=== PATIENT | male | born 1935 | race Caucasian/White ===

== ENCOUNTER → 2016-08-14 | Outpatient (CLI) | payer MEDICARE, BC, OTHER | LOC: MW.CHPOD 08:00 | PROVIDERS: ATTEND Podiatrist Foot & Ankle Surgery | DX: R26.9 Unspecified abnormalities of gait and mobility (principal); M21.40 Flat foot [pes planus] (acquired), unspecified foot; M21.969 Unspecified acquired deformity of unspecified lower leg; I99.9 Unspecified disorder of circulatory system; B35.1 Tinea unguium; I73.9 Peripheral vascular disease, unspecified; M79.673 Pain in unspecified foot; L60.3 Nail dystrophy | CPT/HCPCS: 11721; 99214 ==

== ENCOUNTER → 2016-08-21 | Outpatient (CLI) | payer MEDICARE, BC, OTHER | LOC: MW.CHFP 08:00 | PROVIDERS: ATTEND Student in an Organized Health Care Education/Training Program | DX: Z51.81 Encounter for therapeutic drug level monitoring (principal); Z79.01 Long term (current) use of anticoagulants; I48.91 Unspecified atrial fibrillation | CPT/HCPCS: 85610; 99211 ==

== ENCOUNTER → 2016-09-04 | Outpatient (CLI) | payer MEDICARE, BC, OTHER | LOC: MW.CHFP 08:00 | PROVIDERS: ATTEND Student in an Organized Health Care Education/Training Program | DX: Z51.81 Encounter for therapeutic drug level monitoring (principal); Z79.01 Long term (current) use of anticoagulants; I48.91 Unspecified atrial fibrillation | CPT/HCPCS: 85610; 99211 ==

== ENCOUNTER → 2016-09-17 | Outpatient (CLI) | payer MEDICARE, BC, OTHER | LOC: MW.CHORTHO 08:00 | PROVIDERS: ATTEND Orthopaedic Surgery | DX: M54.40 Lumbago with sciatica, unspecified side (principal); M54.30 Sciatica, unspecified side; M16.12 Unilateral primary osteoarthritis, left hip | CPT/HCPCS: G0463 ==

== ENCOUNTER → 2016-09-18 | Outpatient (CLI) | payer MEDICARE, BC ==
--- NOTE | 2016-09-23 15:37 | MR ---
EXAM DATE: 09/18/16 PATIENT'S AGE: 81 Patient: ARIEL ZENG Facility: [facility] Site Site : [id number] Study: MRI-Spine Lumbar [id number]/25/2017 11:04:41 AM Ordering Physician: RENARD WALLS MD Final Report: Indication: Left hip pain. Comparison: None. Technique: Sagittal T1, T2, and STIR sequences. Axial T1 and T2 weighted sequences. Findings: Normal vertebral body alignment. No fractures. No vertebral body loss of height. No spondylolisthesis. No ligamentous injury. Normal marrow signal. Normal conus terminates at L1. Lumbar spondylosis with multilevel disk degeneration facet arthropathy. T12-L1: No spinal canal or neural foraminal narrowing. L1-2: No spinal canal or neural foraminal narrowing. L2-3: Disc degeneration with diffuse disc bulge. No narrowing of spinal canal. No neural foraminal narrowing. Mild bilateral facet arthropathy. L3-4: Disc degeneration with diffuse disc bulge. Superimposed shallow right foraminal and extra foraminal disc protrusion measuring approximately 3 mm in short axis. No narrowing of spinal canal. No neural foraminal narrowing. Mild bilateral facet arthropathy. L4-5: Disc degeneration with diffuse disc bulge and endplate osteophytic ridging asymmetric to the left. Superimposed left subarticular disk protrusion measuring approximately 4 mm in short axis. Mild narrowing of spinal canal. Left subarticular recess narrowing with impingement of the traversing left L5 nerve root. Mild right and moderate severe left neural foraminal narrowing. Impingement of the exiting left L4 nerve root. Mild bilateral facet arthropathy. L5-S1: Mild disc degeneration diffuse disc bulge. No narrowing of spinal canal. Mild narrowing of the bilateral neural foramina. Mild bilateral facet arthropathy. Degenerative changes of the visualized SI joints. Normal paraspinal soft tissues. Impression: 1. Normal alignment. No fractures. No spondylolisthesis. 2. Lumbar spondylosis 3. At L3-4, disc degeneration with diffuse disc bulge. Right foraminal and extra foraminal disc protrusion. Otherwise, no spinal canal or neural foraminal narrowing 4. At L4-5, disc degeneration with diffuse disc bulge. Left subarticular disk protrusion. Mild narrowing of the spinal canal. Impingement of the traversing left L5 nerve root. Mild right and moderate to severe left neural foraminal narrowing. Impingement of the exiting left L4 nerve root 5. At L5-S1, mild narrowing of bilateral foramina Dictated by Gamal Dai MD @ Sep 23 2016 10:13AM Signed by: Gamal Dai MD @09/23/2016 10:17:01 AM (Electronic Signature) Report Signed by Proxy. SYED
== END ==
LOC: MW.MRI 08:21
PROVIDERS: ATTEND Orthopaedic Surgery
DX: M25.552 Pain in left hip (principal)
CPT/HCPCS: 72148; 72148-26

== ENCOUNTER → 2016-10-02 | Outpatient (CLI) | payer MEDICARE, BC | LOC: MW.CHPM 09:59 | PROVIDERS: ATTEND Anesthesiology | DX: I48.91 Unspecified atrial fibrillation (principal); D64.9 Anemia, unspecified; K57.90 Diverticulosis of intestine, part unspecified, without perforation or abscess without bleeding; Z86.79 Personal history of other diseases of the circulatory system | CPT/HCPCS: 36415; 80053; 85025 ==

== ENCOUNTER → 2016-10-04 | Outpatient (CLI) | payer MEDICARE, BC | LOC: MW.CHFP 08:00 | PROVIDERS: ATTEND Student in an Organized Health Care Education/Training Program | DX: Z51.81 Encounter for therapeutic drug level monitoring (principal); Z79.01 Long term (current) use of anticoagulants; I48.91 Unspecified atrial fibrillation | CPT/HCPCS: 85610; 99211 ==

== ENCOUNTER → 2016-10-09 | Outpatient (CLI) | payer MEDICARE, BC, OTHER ==
--- NOTE | 2016-10-11 13:02 | ECHO ---
EXAM DATE: 10/09/16 PATIENT'S AGE: 81 The echocardiogram report can be seen in this patient's EMR (Electronic Medical Record) in the Reports section. SYED
== END ==
LOC: MW.US 12:47
PROVIDERS: ATTEND Internal Medicine
DX: I48.91 Unspecified atrial fibrillation (principal)
CPT/HCPCS: 93306

== ENCOUNTER → 2016-10-16 | Outpatient (CLI) | payer MEDICARE, BC | LOC: MW.CHPOD 08:00 | PROVIDERS: ATTEND Podiatrist Foot & Ankle Surgery | DX: R26.9 Unspecified abnormalities of gait and mobility (principal); M21.969 Unspecified acquired deformity of unspecified lower leg; M21.40 Flat foot [pes planus] (acquired), unspecified foot; Z79.01 Long term (current) use of anticoagulants; B35.1 Tinea unguium; M79.673 Pain in unspecified foot; I99.9 Unspecified disorder of circulatory system | CPT/HCPCS: 11721; G0463 ==

== ENCOUNTER 2018-10-12 16:25 | Emergency (ER) | payer MEDICARE, BC ==
--- NOTE | 2018-10-12 16:50 | EDM.PDOC ---
ED HPI GENERAL MEDICAL PROBLEM - General Chief Complaint: General Stated Complaint: INJURED ARM Time Seen by Provider: 10/12/18 16:33 - History of Present Illness INITIAL COMMENTS - FREE TEXT/NARRATIVE: HISTORY AND PHYSICAL: History of present illness: Patient is an 83-year-old white male who is on Coumadin who presents status post fall from last Saturday which he has had injured his right ribs right wrist and right hip he has been ambulatory since she's had no nausea vomiting or other complaints he denies chest pain shortness of breath. Review of systems: As per history of present illness and below otherwise all systems reviewed and negative. Past medical history: As per history of present illness and as reviewed below otherwise noncontributory. Surgical history: As per history of present illness and as reviewed below otherwise noncontributory. Social history: No reported history of drug or alcohol abuse. Family history: As per history of present illness and as reviewed below otherwise noncontributory. Physical exam: HEENT: Small per his noted right forehead normocephalic, pupils reactive, negative for conjunctival pallor or scleral icterus, mucous membranes moist, throat clear, neck supple, nontender, trachea midline. Lungs: Clear to auscultation, breath sounds equal bilaterally, chest right rib tenderness no crepitation or point tenderness Heart: S1S2, regular, negative for clicks, rubs, or JVD. Abdomen: Soft, nondistended, nontender. Negative for masses or hepatosplenomegaly. Negative for costovertebral tenderness. Pelvis: Stable nontender. Genitourinary: Deferred. Rectal: Deferred. Extremities: Right wrist has some mild tenderness over dorsal aspect no gross deformity Neuro: Awake, alert, oriented. Cranial nerves II through XII unremarkable. Cerebellum unremarkable. Motor and sensory unremarkable throughout. Exam nonfocal. Diagnostics: CBC CMP PT/INR CT brain x-ray right wrist x-ray right ribs with chest x-ray right hip with pelvis Therapeutics: None Impression: #1 observation today status post fall #2 head injury #3 right rib injury #4 right wrist injury #5 right hip injury Definitive disposition and diagnosis as appropriate pending reevaluation and review of above. right ribs Pain Score (Numeric/FACES): 7 right wrist Pain Score (Numeric/FACES): 10 - Related Data Allergies Allergy/AdvReac Type Severity Reaction Status Date / Time morphine Allergy Vomiting Verified 10/12/18 16:36 Penicillins Allergy Hives Verified 10/12/18 16:36 Home Meds: Home Meds Allopurinol [Zyloprim] 100 mg PO DAILY 09/03/14 [History] Citalopram [Citalopram HBr] 40 mg PO DAILY 09/03/14 [History] Diltiazem HCl [Diltiazem 24Hr ER] 240 mg PO DAILY 09/03/14 [History] Latanoprost [Xalatan 0.005% Ophth Soln] 1 drop EYEBOTH BEDTIME 09/03/14 [History ] Tamsulosin [Flomax] 0.4 mg PO BEDTIME 09/03/14 [History] Warfarin [Coumadin] 5 mg PO DAILY 09/03/14 [History] Acetaminophen [Tylenol] 325 tab PO Q4HR PRN 01/19/15 [History] Simvastatin [Zocor] 40 mg PO BEDTIME 04/02/16 [History] Fish Oil/[place]-3 Fatty Acids [Fish Oil 1,000 MG] 1 each PO DAILY 05/02/18 [ History] Levothyroxine [Synthroid] 50 mcg DAILY 05/02/18 [History] Sennosides/Docusate Sodium [Docusate Sodium-Senna Tablet] 1 each PO ASDIRECTED 05/02/18 [History] Trospium [Sanctura] 1 tab DAILY 05/02/18 [History] hydroCHLOROthiazide [Hydrochlorothiazide] 50 mg PO DAILY 05/02/18 [History] Past Medical History HEENT History: Reports: Hard of Hearing Cardiovascular History: Reports: Arrhythmia, Hypertension Respiratory History: Reports: Sleep Apnea Other Respiratory History: Sleep apnea with machine "has not used in over 1 month" Gastrointestinal History: Reports: None Genitourinary History: Reports: Renal Calculus Musculoskeletal History: Reports: Gout Neurological History: Reports: CVA Other Neuro History: hx: Stroke age 50 yrs, residual noted by , is his responses are not always accurate 'he will say no but mean yes', fine motor issues 'cannot button, will come to me to do' Psychiatric History: Reports: Depression Endocrine/Metabolic History: Reports: None Hematologic History: Reports: Anemia Immunologic History: Reports: None Oncologic (Cancer) History: Reports: Prostate Other Oncologic History: Radiation therapy 40 some treatments estimates 3 yrs or > Dermatologic History: Reports: None - Infectious Disease History Infectious Disease History: Reports: Chicken Pox - Past Surgical History Head Surgeries/Procedures: Reports: None HEENT Surgical History: Reports: None Cardiovascular Surgical History: Reports: None Respiratory Surgical History: Reports: None GI Surgical History: Reports: None Male Surgical History: Reports: Other (See Below) Endocrine Surgical History: Reports: None Neurological Surgical History: Reports: Other (See Below) Musculoskeletal Surgical History: Reports: Shoulder Surgery Oncologic Surgical History: Reports: None Dermatological Surgical History: Reports: None Social & Family History - Family History Family Medical History: Noncontributory GI: Reports: Other (See Below) Other GI Family History: His mother and sister of liver disease but cannot recall what their specific condition is. - Tobacco Use Smoking Status *Q: Never Smoker Second Hand Smoke Exposure: No - Caffeine Use Caffeine Use: Reports: Coffee - Recreational Drug Use Recreational Drug Use: No ED ROS GENERAL - Review of Systems Review Of Systems: ROS reveals no pertinent complaints other than HPI. ED EXAM, GENERAL - Physical Exam Exam: See Below (Dictation) Course - Vital Signs Last Recorded V/S: Last Vital Signs Temp 36.5 C 10/12/18 16:31 Pulse 74 10/12/18 16:31 Resp 18 10/12/18 16:31 BP 131/64 10/12/18 16:31 Pulse Ox 97 10/12/18 16:31 - Orders/Labs/Meds Labs: Laboratory Tests 10/12/18 10/12/18 10/12/18 Range/Units 17:00 17:00 17:00 WBC 5.25 (4.0-11.0) K/uL RBC 3.47 L (4.50-5.90) M/uL Hgb 10.5 L (13.0-17.0) g/dL Hct 33.0 L (38.0-50.0) % MCV 95.1 (80.0-98.0) fL MCH 30.3 (27.0-32.0) pg MCHC 31.8 (31.0-37.0) g/dL RDW Std Deviation 75.0 H (28.0-62.0) fl RDW Coeff of Akbar 22 H (11.0-15.0) % Plt Count 209 (150-400) K/uL MPV 9.20 (7.40-12.00) fL Neut % (Auto) 63.8 (48.0-80.0) % Lymph % (Auto) 22.1 (16.0-40.0) % [place] % (Auto) 9.7 (0.0-15.0) % Eos % (Auto) 4.0 (0.0-7.0) % Baso % (Auto) 0.4 (0.0-1.5) % Neut # (Auto) 3.4 (1.4-5.7) K/uL Lymph # (Auto) 1.2 (0.6-2.4) K/uL [place] # (Auto) 0.5 (0.0-0.8) K/uL Eos # (Auto) 0.2 (0.0-0.7) K/uL Baso # (Auto) 0.0 (0.0-0.1) K/uL Nucleated RBC % 0.0 /100WBC Nucleated RBCs # 0 K/uL INR 2.16 Sodium 142 (136-148) mmol/L Potassium 4.1 (3.5-5.1) mmol/L Chloride 107 (98-107) mmol/L Carbon Dioxide 26.1 (21.0-32.0) mmol/L BUN 41 H (7.0-18.0) mg/dL Creatinine 2.7 H (0.8-1.3) mg/dL Est Cr Clr Drug Dosing 20.00 mL/min Estimated GFR (MDRD) 22.6 ml/min Glucose 99 (74-106) mg/dL Calcium 9.0 (8.5-10.1) mg/dL Total Bilirubin 0.3 (0.2-1.0) mg/dL AST 9 L (15-37) IU/L ALT 17 (14-63) IU/L Alkaline Phosphatase 79 (46-116) U/L Total Protein 6.7 (6.4-8.2) g/dL Albumin 3.0 L (3.4-5.0) g/dL Globulin 3.7 (2.6-4.0) g/dL Albumin/Globulin Ratio 0.8 L (0.9-1.6) Departure - Departure Time of Disposition: 17:50 Disposition: Home, Self-Care 01 Condition: Good Clinical Impression: Fall, Head injury, Hip injury, Rib injury, Ulna fracture - Discharge Information Referrals: PCP,Unknown [Primary Care Provider] - Forms: ED Department Discharge Additional Instructions: The following information is given to patients seen in the emergency department who are being discharged to home. This information is to outline your options for follow-up care. We provide all patients seen in our emergency department with a follow-up referral. The need for follow-up, as well as the timing and circumstances, are variable depending upon the specifics of your emergency department visit. If you don't have a primary care physician on staff, we will provide you with a referral. We always advise you to contact your personal physician following an emergency department visit to inform them of the circumstance of the visit and for follow-up with them and/or the need for any referrals to a consulting specialist. The emergency department will also refer you to a specialist when appropriate. This referral assures that you have the opportunity for followup care with a specialist. All of these measure are taken in an effort to provide you with optimal care, which includes your followup. Under all circumstances we always encourage you to contact your private physician who remains a resource for coordinating your care. When calling for followup care, please make the office aware that this follow-up is from your recent emergency room visit. If for any reason you are refused follow-up, please contact the [facility] emergency department at and asked to speak to the emergency department charge nurse. [facility] [address], [address] [place] [address] [place] as directed follow-up primary medical doctor and orthopedic surgery as discussed return as needed as discussed
--- NOTE | 2018-10-12 17:33 | CR ---
INDICATION: Trauma. Patient fell 2 days prior. COMPARISON: none TECHNIQUE: Two-view right wrist FINDINGS: The bones are anatomically aligned. There is an oblique hairline fracture extending through the distal ulnar metaphysis. The radius appears intact. No fractures are noted within the carpal bones or metacarpals. IMPRESSION: Nondisplaced fracture noted within the distal ulnar metaphysis. Dictated by Ted Mendez MD @ Oct 12 2018 5:30PM Signed by Dr. Ted Mendez @ Oct 12 2018 5:32PM
--- NOTE | 2018-10-12 17:37 | CT ---
TECHNIQUE: Noncontrast head CT. INDICATION: Fell and hit head. On warfarin. COMPARISON: 03/31/[address] FINDINGS: There is a large area of encephalomalacia in the left frontal lobe and a small area of encephalomalacia in the right frontal lobe. There is a small chronic left cerebellar hemispheric infarct. These findings are unchanged. There is no acute intracranial hemorrhage, mass effect, or evidence for acute infarction. There is age-related cerebral and cerebellar volume loss. IMPRESSION: 1. No acute intracranial findings. 2. Several chronic infarcts, unchanged. Dictated by Alexandru Higuera MD @ 10/12/2018 5:34:50 PM Please note that all CT scans at this facility use dose modulation, iterative reconstruction, and/or weight-based dosing when appropriate to reduce radiation dose to as low as reasonably achievable. Dictated by: Alexandru Higuera MD @ 10/12/2018 17:35:46 (Electronically Signed)
--- NOTE | 2018-10-12 17:46 | CR ---
INDICATION: Patient fell 2 days ago TECHNIQUE: AP pelvis and 2 view right hip. COMPARISON: none FINDINGS: The hips are anatomically aligned. There is no evidence of a fracture or intrinsic bone lesion within either hip. The sacroiliac joints, iliac wings and pubic rami appear normal. The soft tissues appear normal. IMPRESSION: Negative right hip and pelvis. Dictated by Ted Mendez MD @ Oct 12 2018 5:44PM Signed by Dr. Ted Mendez @ Oct 12 2018 5:45PM
--- NOTE | 2018-10-12 17:48 | CR ---
INDICATION: Patient fell 2 days ago COMPARISON: none TECHNIQUE: PA chest and right ribs. FINDINGS: The lungs are clear. There is no evidence of pulmonary contusion, pneumothorax or pleural effusion. The heart and pulmonary vessels are of normal size. Oblique detail views of the ribs demonstrate no acute fracture. There are is bony callus about old healed fractures within the anterior right 8th, 9th and 10th ribs. There is no evidence of pleural hematoma. IMPRESSION: No acute rib fracture identified. Dictated by Ted Mendez MD @ Oct 12 2018 5:45PM Signed by Dr. Ted Mendez @ Oct 12 2018 5:48PM
[2018-10-12 18:16] VITALS: BP 131/58
== END 2018-10-12 18:16 | disposition home or self-care (01) ==
LOC: MW.ED 16:25
DX: S52.601A Unspecified fracture of lower end of right ulna, initial encounter for closed fracture (principal); S09.90XA Unspecified injury of head, initial encounter; S29.9XXA Unspecified injury of thorax, initial encounter; S79.911A Unspecified injury of right hip, initial encounter; I10 Essential (primary) hypertension; F32.9 Major depressive disorder, single episode, unspecified; D64.9 Anemia, unspecified; Z86.73 Personal history of transient ischemic attack (TIA), and cerebral infarction without residual deficits; Z88.5 Allergy status to narcotic agent; Z88.0 Allergy status to penicillin; Z79.899 Other long term (current) drug therapy; Z79.01 Long term (current) use of anticoagulants; W19.XXXA Unspecified fall, initial encounter
CPT/HCPCS: 36415; 70450; 70450-26; 71100-26-RT; 71100-RT; 73100-26-RT; 73100-RT; 73502-26-RT; 73502-RT; 80053; 85025; 85610; 99283-25

== ENCOUNTER 2018-10-18 10:11 | Emergency (ER) | payer MEDICARE, BC ==
[2018-10-18 10:21] VITALS: BP 136/95
--- NOTE | 2018-10-18 10:30 | EDM.PDOC ---
ED HPI GENERAL MEDICAL PROBLEM - General Chief Complaint: ENT Problem Stated Complaint: NOSE BLEED Time Seen by Provider: 10/18/18 10:23 Source of Information: Reports: Patient History Limitations: Reports: No Limitations - History of Present Illness INITIAL COMMENTS - FREE TEXT/NARRATIVE: HISTORY AND PHYSICAL: History of present illness: Patient is an 83-year-old male who presents to the emergency room today with complaints of epistaxis which started approximately 20 minutes prior to arrival. He denies any falls, injury or trauma. Patient does report that he takes warfarin daily. Sees a primary care provider in the clinic for routine PT/ INR level check. Patient denies any fever, chills, headache, change in vision, syncope or near syncope. Denies any chest pain, back pain, shortness of breath or cough. Denies any abdominal pain, nausea, vomiting, diarrhea, constipation or dysuria. Has not noted any blood in urine or stool. Patient has been eating and drinking appropriately. Review of systems: As per history of present illness and below otherwise all systems reviewed and negative. Past medical history: As per history of present illness and as reviewed below otherwise noncontributory. Surgical history: As per history of present illness and as reviewed below otherwise noncontributory. Social history: See social history for further information Family history: As per history of present illness and as reviewed below otherwise noncontributory. Physical exam: General: Well-developed and well-nourished 83-year-old male. Alert and oriented. Nontoxic appearing and in no acute distress. HEENT: Atraumatic, normocephalic, pupils equal and reactive bilaterally, negative for conjunctival pallor or scleral icterus, mucous membranes moist, left nostril has an anterior nosebleed, TMs normal bilaterally, throat clear, neck supple, nontender, trachea midline. No drooling or trismus noted. No meningeal signs. No hot potato voice noted. Lungs: Clear to auscultation, breath sounds equal bilaterally, chest nontender. Heart: S1S2, regular rate and rhythm without overt murmur Abdomen: Soft, nondistended, nontender. Skin: Intact, warm, dry. No lesions or rashes noted. Extremities: Atraumatic, moves all extremities per self without difficulty or deficits, negative for cords or calf pain. Neurovascular unremarkable. Neuro: Awake, alert, oriented. Cranial nerves II through XII unremarkable. Cerebellum unremarkable. Motor and sensory unremarkable throughout. Exam nonfocal. Notes: Anterior nosebleed noted to the left near. We discussed options for nasal packing. 5.5 Rhino Rocket was placed in the left naris successfully. Patient tolerated well. Mustache dressing applied. Supportive care measures were reviewed and discussed. Voices understanding and is agreeable to plan of care. Denies any further questions or concerns at this time. Diagnostics: PT/INR Therapeutics: RhinoRocket Prescription: None Impression: Epistaxis, left nares Plan: 1. Please return in 48 hours for Rhino Rocket removal. 2. Gentle blowing of your nose. 3. Please follow-up with your primary care provider as we discussed. Return to the ED as needed and as discussed. Definitive disposition and diagnosis as appropriate pending reevaluation and review of above. Onset: Today Duration: Minutes: - Related Data Allergies Allergy/AdvReac Type Severity Reaction Status Date / Time morphine Allergy Vomiting Verified 10/12/18 16:36 Penicillins Allergy Hives Verified 10/12/18 16:36 Home Meds: Home Meds Allopurinol [Zyloprim] 100 mg PO DAILY 09/03/14 [History] Citalopram [Citalopram HBr] 40 mg PO DAILY 09/03/14 [History] Diltiazem HCl [Diltiazem 24Hr ER] 240 mg PO DAILY 09/03/14 [History] Latanoprost [Xalatan 0.005% Ophth Soln] 1 drop EYEBOTH BEDTIME 09/03/14 [History ] Tamsulosin [Flomax] 0.4 mg PO BEDTIME 09/03/14 [History] Warfarin [Coumadin] 5 mg PO DAILY 09/03/14 [History] Acetaminophen [Tylenol] 325 tab PO Q4HR PRN 01/19/15 [History] Simvastatin [Zocor] 40 mg PO BEDTIME 04/02/16 [History] Fish Oil/[place]-3 Fatty Acids [Fish Oil 1,000 MG] 1 each PO DAILY 05/02/18 [ History] Levothyroxine [Synthroid] 50 mcg DAILY 05/02/18 [History] Sennosides/Docusate Sodium [Docusate Sodium-Senna Tablet] 1 each PO ASDIRECTED 05/02/18 [History] Trospium [Sanctura] 1 tab DAILY 05/02/18 [History] Past Medical History HEENT History: Reports: Hard of Hearing Cardiovascular History: Reports: Arrhythmia, Hypertension Respiratory History: Reports: Sleep Apnea Other Respiratory History: Sleep apnea with machine "has not used in over 1 month" Gastrointestinal History: Reports: None Genitourinary History: Reports: Renal Calculus Musculoskeletal History: Reports: Gout Neurological History: Reports: CVA Other Neuro History: hx: Stroke age 50 yrs, residual noted by , is his responses are not always accurate 'he will say no but mean yes', fine motor issues 'cannot button, will come to me to do' Psychiatric History: Reports: Depression Endocrine/Metabolic History: Reports: None Hematologic History: Reports: Anemia Immunologic History: Reports: None Oncologic (Cancer) History: Reports: Prostate Other Oncologic History: Radiation therapy 40 some treatments estimates 3 yrs or > Dermatologic History: Reports: None - Infectious Disease History Infectious Disease History: Reports: Chicken Pox - Past Surgical History Head Surgeries/Procedures: Reports: None HEENT Surgical History: Reports: None Cardiovascular Surgical History: Reports: None Respiratory Surgical History: Reports: None GI Surgical History: Reports: None Male Surgical History: Reports: Other (See Below) Endocrine Surgical History: Reports: None Neurological Surgical History: Reports: Other (See Below) Musculoskeletal Surgical History: Reports: Shoulder Surgery Oncologic Surgical History: Reports: None Dermatological Surgical History: Reports: None Social & Family History - Family History Family Medical History: Noncontributory GI: Reports: Other (See Below) Other GI Family History: His mother and sister of liver disease but cannot recall what their specific condition is. - Tobacco Use Smoking Status *Q: Never Smoker Second Hand Smoke Exposure: No - Caffeine Use Caffeine Use: Reports: Coffee - Recreational Drug Use Recreational Drug Use: No ED ROS ENT - Review of Systems Review Of Systems: ROS reveals no pertinent complaints other than HPI. ED EXAM, ENT - Physical Exam Exam: See Below (See dictation) Course - Vital Signs Last Recorded V/S: Last Vital Signs Temp 97.4 F 10/18/18 10:17 Pulse 82 10/18/18 10:17 Resp 24 H 10/18/18 10:17 BP 136/95 H 10/18/18 10:17 Pulse Ox 93 L 10/18/18 10:17 - Orders/Labs/Meds Labs: Laboratory Tests 10/18/18 Range/Units 10:58 INR 3.13 Departure - Departure Time of Disposition: 10:30 Disposition: Home, Self-Care 01 Clinical Impression: Epistaxis - Discharge Information Instructions: Nosebleed, [id number] Referrals: Marco Farrell MD [Primary Care Provider] - Forms: ED Department Discharge Additional Instructions: The following information is given to patients seen in the emergency department who are being discharged to home. This information is to outline your options for follow-up care. We provide all patients seen in our emergency department with a follow-up referral. The need for follow-up, as well as the timing and circumstances, are variable depending upon the specifics of your emergency department visit. If you don't have a primary care physician on staff, we will provide you with a referral. We always advise you to contact your personal physician following an emergency department visit to inform them of the circumstance of the visit and for follow-up with them and/or the need for any referrals to a consulting specialist. The emergency department will also refer you to a specialist when appropriate. This referral assures that you have the opportunity for follow-up care with a specialist. All of these measure are taken in an effort to provide you with optimal care, which includes your follow-up. Under all circumstances we always encourage you to contact your private physician who remains a resource for coordinating your care. When calling for follow-up care, please make the office aware that this follow-up is from your recent emergency room visit. If for any reason you are refused follow-up, please contact the [facility] Emergency Department at and asked to speak to the emergency department charge nurse. [facility] Primary [facility] [address] [place] [id number] [address] [address] 1. Please return to the ED in 48 hours for Rhino Rocket removal. 2. Gentle blowing of your nose. 3. Please follow-up with your primary care provider as we discussed. Return to the ED as needed and as discussed.
== END 2018-10-18 11:54 | disposition home or self-care (01) ==
LOC: MW.ED 10:11
DX: R04.0 Epistaxis (principal); I10 Essential (primary) hypertension; M10.9 Gout, unspecified; F32.9 Major depressive disorder, single episode, unspecified; Z88.0 Allergy status to penicillin; Z88.5 Allergy status to narcotic agent; Z86.73 Personal history of transient ischemic attack (TIA), and cerebral infarction without residual deficits; Z79.01 Long term (current) use of anticoagulants; Z79.899 Other long term (current) drug therapy
CPT/HCPCS: 30901; 30903; 36415; 85610; 99282; 99283

== ENCOUNTER 2018-10-20 12:08 | Emergency (ER) | payer MEDICARE, BC ==
[2018-10-20 13:20] VITALS: BP 111/61
--- NOTE | 2018-10-20 13:33 | EDM.PDOC ---
ED HPI GENERAL MEDICAL PROBLEM - General Chief Complaint: ENT Problem Stated Complaint: ROCKCELI ROMOVED Time Seen by Provider: 10/20/18 12:13 Source of Information: Reports: Patient History Limitations: Reports: No Limitations - History of Present Illness INITIAL COMMENTS - FREE TEXT/NARRATIVE: HISTORY AND PHYSICAL: History of present illness: Patient is an 83-year-old male presents to the ED today for Rhino Rocket removal of the left nare. Patient has had the Rhino Rocket in for 48 hours. Patient states he is on warfarin and follows with Dr. Fraser at [place]. Patient denies any concerns or complaints today. Patient denies fever, chills, chest pain, shortness of breath, or cough. Denies headache, neck stiff ness, change in vision, syncope, or near syncope. Denies nausea, vomiting, abdominal pain, diarrhea, constipation, or dysuria. Has not noted any blood in urine or stool. Patient has been eating and drinking appropriately. Review of systems: As per history of present illness and below otherwise all systems reviewed and negative. Past medical history: As per history of present illness and as reviewed below otherwise noncontributory. Surgical history: As per history of present illness and as reviewed below otherwise noncontributory. Social history: See social history for further information Family history: As per history of present illness and as reviewed below otherwise noncontributory. Physical exam: General: Patient is alert, oriented, and in no acute distress. Patient sitting comfortably on exam table. HEENT: Atraumatic, normocephalic, pupils equal and reactive bilaterally, negative for conjunctival pallor or scleral icterus, mucous membranes moist, TMs normal bilaterally, throat clear, neck supple, nontender, trachea midline. No drooling or trismus noted. No meningeal signs. No hot potato voice noted. There is dried blood surrounding the Rhino Rocket. Lungs: Clear to auscultation, breath sounds equal bilaterally, chest nontender. Heart: S1S2, regular rate and rhythm without overt murmur Abdomen: Soft, nondistended, nontender. Negative for masses or hepatosplenomegaly. Negative for costovertebral tenderness. Pelvis: Stable nontender. Genitourinary: Deferred. Rectal: Deferred. Skin: Intact, warm, dry. No lesions or rashes noted. Extremities: Atraumatic, negative for cords or calf pain. Neurovascular unremarkable. Neuro: Awake, alert, oriented. Cranial nerves II through XII unremarkable. Cerebellum unremarkable. Motor and sensory unremarkable throughout. Exam nonfocal. Notes: Dr. Granger verbally involved in patient care. Usual and customary procedures were used for Rhino Rocket removal. Patient tolerated procedure well. After removal, did visualize patient's turbinates. There is a small area or in the anterior Kiesselbach plexus that appeared more erythematous with dried blood. Did cauterize this area using silver nitrate with usual and customary procedures. Patient tolerated this well. Patient monitored for an additional 15-20 minutes without rebleed. Discussed the importance for follow-up with his primary care provider. Voices understanding and is agreeable to plan of care. Denies any further questions or concerns at this time. Diagnostics: INR Therapeutics: silver nitrate cautery Prescription: none Impression: Encounter for rhino rocket removal h/o epistaxis, resolved and subsequent encounter Anticoagulated Plan: 1. Avoid rebleeding precautions as discussed. 2. Follow up with your primary care provider as discussed. Return to the ED as needed and as discussed. Definitive disposition and diagnosis as appropriate pending reevaluation and review of above. - Related Data Allergies Allergy/AdvReac Type Severity Reaction Status Date / Time morphine Allergy Vomiting Verified 10/20/18 12:28 Penicillins Allergy Hives Verified 10/20/18 12:28 Home Meds: Home Meds Allopurinol [Zyloprim] 100 mg PO DAILY 09/03/14 [History] Citalopram [Citalopram HBr] 40 mg PO DAILY 09/03/14 [History] Diltiazem HCl [Diltiazem 24Hr ER] 240 mg PO DAILY 09/03/14 [History] Latanoprost [Xalatan 0.005% Ophth Soln] 1 drop EYEBOTH BEDTIME 09/03/14 [History ] Tamsulosin [Flomax] 0.4 mg PO BEDTIME 09/03/14 [History] Warfarin [Coumadin] 5 mg PO DAILY 09/03/14 [History] Acetaminophen [Tylenol] 325 tab PO Q4HR PRN 01/19/15 [History] Simvastatin [Zocor] 40 mg PO BEDTIME 04/02/16 [History] Fish Oil/[place]-3 Fatty Acids [Fish Oil 1,000 MG] 1 each PO DAILY 12/07/18 [ History] Levothyroxine [Synthroid] 50 mcg DAILY 05/02/18 [History] Sennosides/Docusate Sodium [Docusate Sodium-Senna Tablet] 1 each PO ASDIRECTED 05/02/18 [History] Trospium [Sanctura] 1 tab DAILY 05/02/18 [History] Past Medical History HEENT History: Reports: Hard of Hearing Cardiovascular History: Reports: Arrhythmia, Hypertension Respiratory History: Reports: Sleep Apnea Other Respiratory History: Sleep apnea with machine "has not used in over 1 month" Gastrointestinal History: Reports: None Genitourinary History: Reports: Renal Calculus Musculoskeletal History: Reports: Gout Neurological History: Reports: CVA Other Neuro History: hx: Stroke age 50 yrs, residual noted by , is his responses are not always accurate 'he will say no but mean yes', fine motor issues 'cannot button, will come to me to do' Psychiatric History: Reports: Depression Endocrine/Metabolic History: Reports: None Hematologic History: Reports: Anemia Immunologic History: Reports: None Oncologic (Cancer) History: Reports: Prostate Other Oncologic History: Radiation therapy 40 some treatments estimates 3 yrs or > Dermatologic History: Reports: None - Infectious Disease History Infectious Disease History: Reports: Chicken Pox, Measles, Mumps - Past Surgical History Head Surgeries/Procedures: Reports: None HEENT Surgical History: Reports: None Cardiovascular Surgical History: Reports: None Respiratory Surgical History: Reports: None GI Surgical History: Reports: None Male Surgical History: Reports: Other (See Below) Endocrine Surgical History: Reports: None Neurological Surgical History: Reports: Other (See Below) Musculoskeletal Surgical History: Reports: Shoulder Surgery Oncologic Surgical History: Reports: None Dermatological Surgical History: Reports: None Social & Family History - Family History Family Medical History: Noncontributory GI: Reports: Other (See Below) Other GI Family History: His mother and sister of liver disease but cannot recall what their specific condition is. - Tobacco Use Smoking Status *Q: Never Smoker - Caffeine Use Caffeine Use: Reports: Coffee - Recreational Drug Use Recreational Drug Use: No ED ROS ENT - Review of Systems Review Of Systems: ROS reveals no pertinent complaints other than HPI. ED EXAM, ENT - Physical Exam Exam: See Below (See dictation) Course - Vital Signs Last Recorded V/S: Last Vital Signs Temp 36.7 C 10/20/18 12:26 Pulse 63 10/20/18 13:19 Resp 18 10/20/18 13:19 BP 111/61 10/20/18 13:19 Pulse Ox 94 L 10/20/18 13:19 - Orders/Labs/Meds Orders: Active Orders 24 hr Category Date Time Status INR,PT,PROTHROMBIN TIME [COAG] Stat Lab 10/20/18 13:10 Received Departure - Departure Time of Disposition: 13:33 Disposition: Home, Self-Care 01 Clinical Impression: History of epistaxis, Anticoagulated - Discharge Information Referrals: PCP,Unknown [Primary Care Provider] - Additional Instructions: The following information is given to patients seen in the emergency department who are being discharged to home. This information is to outline your options for follow-up care. We provide all patients seen in our emergency department with a follow-up referral. The need for follow-up, as well as the timing and circumstances, are variable depending upon the specifics of your emergency department visit. If you don't have a primary care physician on staff, we will provide you with a referral. We always advise you to contact your personal physician following an emergency department visit to inform them of the circumstance of the visit and for follow-up with them and/or the need for any referrals to a consulting specialist. The emergency department will also refer you to a specialist when appropriate. This referral assures that you have the opportunity for follow-up care with a specialist. All of these measure are taken in an effort to provide you with optimal care, which includes your follow-up. Under all circumstances we always encourage you to contact your private physician who remains a resource for coordinating your care. When calling for follow-up care, please make the office aware that this follow-up is from your recent emergency room visit. If for any reason you are refused follow-up, please contact the [facility] Emergency Department at and asked to speak to the emergency department charge nurse. [facility] [address] [place] [id number] [address] 1. Avoid rebleeding precautions as discussed. 2. Follow up with your primary care provider as discussed. Return to the ED as needed and as discussed. - My Orders Last 24 Hours: My Active Orders 10/20/18 13:10 INR,PT,PROTHROMBIN TIME [COAG] Stat - Assessment/Plan Last 24 Hours: My Active Orders 10/20/18 13:10 INR,PT,PROTHROMBIN TIME [COAG] Stat
== END 2018-10-20 13:45 | disposition home or self-care (01) ==
LOC: MW.ED 12:08
DX: Z48.00 Encounter for change or removal of nonsurgical wound dressing (principal); R04.0 Epistaxis; I10 Essential (primary) hypertension; F32.9 Major depressive disorder, single episode, unspecified; Z88.5 Allergy status to narcotic agent; Z79.899 Other long term (current) drug therapy; Z86.73 Personal history of transient ischemic attack (TIA), and cerebral infarction without residual deficits; Z88.0 Allergy status to penicillin; Z79.01 Long term (current) use of anticoagulants
CPT/HCPCS: 36415; 85610; 99282

== ENCOUNTER 2019-02-23 15:11 | Observation (INO) | payer MEDICARE, BC ==
--- NOTE | 2019-02-23 16:22 | EDM.PDOC ---
ED HPI GENERAL MEDICAL PROBLEM - General Chief Complaint: Gastrointestinal Problem Stated Complaint: BLOOD LOSS Time Seen by Provider: 02/23/19 16:03 Source of Information: Reports: Patient, Family History Limitations: Reports: No Limitations - History of Present Illness INITIAL COMMENTS - FREE TEXT/NARRATIVE: HISTORY AND PHYSICAL: History of present illness: Patient is an 83-year-old male presents to the ED today with concern of bright red coming from his rectum. Patient states he's had this happen in the past and is followed with Dr. Contreras and received multiple colonoscopies. Patient last had an air enema in 2018. Patient states he has a history of diverticulosis which is what is believed to be bleeding patient states. Patient states that he decided to come to the ED today because he has more blood than these had usually. Patient states he's had about an eighth of a cup of blood last night and another eighth of a cup today before coming to the ED. Patient states he is having issues with anemia due to iron deficiency and was told he needs to get scheduled for an iron transfusion. Patient is on warfarin for atrial fibrillation. Patient denies any other symptoms or concerns. Patient denies fever, chills, chest pain, shortness of breath, or cough. Denies headache, dizziness, neck stiff ness, change in vision, syncope, or near syncope. Denies nausea, vomiting, abdominal pain, diarrhea, constipation, or dysuria. Has not noted any blood in urine or stool. Patient has been eating and drinking appropriately. Review of systems: As per history of present illness and below otherwise all systems reviewed and negative. Past medical history: As per history of present illness and as reviewed below otherwise noncontributory. Surgical history: As per history of present illness and as reviewed below otherwise noncontributory. Social history: See social history for further information Family history: As per history of present illness and as reviewed below otherwise noncontributory. Physical exam: General: Patient is alert, oriented, and in no acute distress. Patient sitting comfortably on exam table. HEENT: Atraumatic, normocephalic, pupils equal and reactive bilaterally, negative for conjunctival pallor or scleral icterus, mucous membranes moist, TMs normal bilaterally, throat clear, neck supple, nontender, trachea midline. No drooling or trismus noted. No meningeal signs. No hot potato voice noted. Lungs: Clear to auscultation, breath sounds equal bilaterally, chest nontender. Heart: S1S2, regular rate and rhythm without overt murmur Abdomen: Soft, nondistended, nontender. Negative for masses or hepatosplenomegaly. Negative for costovertebral tenderness. Pelvis: Stable nontender. Genitourinary: Deferred. Rectal: Deferred. Skin: Intact, warm, dry. No lesions or rashes noted. Extremities: Atraumatic, negative for cords or calf pain. Neurovascular unremarkable. Neuro: Awake, alert, oriented. Cranial nerves II through XII unremarkable. Cerebellum unremarkable. Motor and sensory unremarkable throughout. Exam nonfocal. Notes: Dr. Rivera consulted on patient and will admit to observation. Voices understanding and is agreeable to plan of care. Denies any further questions or concerns at this time. Diagnostics: CBC, CMP, UA, PT/INR, Hemoccult Therapeutics: Saline lock Impression: Bright red blood per rectum Anticoagulated History of diverticulosis History of Chronic Kidney disease Plan: 1. Admit to observation and Dr. Rivera. Definitive disposition and diagnosis as appropriate pending reevaluation and review of above. - Related Data Allergies Allergy/AdvReac Type Severity Reaction Status Date / Time morphine Allergy Vomiting Verified 10/20/18 12:28 Penicillins Allergy Hives Verified 10/20/18 12:28 Home Meds: Home Meds Allopurinol [Zyloprim] 100 mg PO DAILY 09/03/14 [History] Citalopram [Citalopram HBr] 40 mg PO DAILY 09/03/14 [History] Diltiazem HCl [Diltiazem 24Hr ER] 240 mg PO DAILY 09/03/14 [History] Latanoprost [Xalatan 0.005% Ophth Soln] 1 drop EYEBOTH BEDTIME 09/03/14 [History ] Tamsulosin [Flomax] 0.4 mg PO BEDTIME 09/03/14 [History] Warfarin [Coumadin] 5 mg PO DAILY 09/03/14 [History] Acetaminophen [Tylenol] 325 tab PO Q4HR PRN 01/19/15 [History] Simvastatin [Zocor] 40 mg PO BEDTIME 04/02/16 [History] Fish Oil/[place]-3 Fatty Acids [Fish Oil 1,000 MG] 1 each PO DAILY 05/02/18 [ History] Levothyroxine [Synthroid] 50 mcg DAILY 05/02/18 [History] Sennosides/Docusate Sodium [Docusate Sodium-Senna Tablet] 1 each PO ASDIRECTED 05/02/18 [History] Trospium [Sanctura] 1 tab DAILY 05/02/18 [History] Past Medical History HEENT History: Reports: Hard of Hearing Cardiovascular History: Reports: Arrhythmia, Hypertension Respiratory History: Reports: Sleep Apnea Other Respiratory History: Sleep apnea with machine "has not used in over 1 month" Gastrointestinal History: Reports: None Genitourinary History: Reports: Renal Calculus Musculoskeletal History: Reports: Gout Neurological History: Reports: CVA Other Neuro History: hx: Stroke age 50 yrs, residual noted by , is his responses are not always accurate 'he will say no but mean yes', fine motor issues 'cannot button, will come to me to do' Psychiatric History: Reports: Depression Endocrine/Metabolic History: Reports: None Hematologic History: Reports: Anemia Immunologic History: Reports: None Oncologic (Cancer) History: Reports: Prostate Other Oncologic History: Radiation therapy 40 some treatments estimates 3 yrs or > Dermatologic History: Reports: None - Infectious Disease History Infectious Disease History: Reports: Chicken Pox, Measles, Mumps - Past Surgical History Head Surgeries/Procedures: Reports: None HEENT Surgical History: Reports: None Cardiovascular Surgical History: Reports: None Respiratory Surgical History: Reports: None GI Surgical History: Reports: None Male Surgical History: Reports: Other (See Below) Endocrine Surgical History: Reports: None Neurological Surgical History: Reports: Other (See Below) Musculoskeletal Surgical History: Reports: Shoulder Surgery Oncologic Surgical History: Reports: None Dermatological Surgical History: Reports: None Social & Family History - Family History Family Medical History: Noncontributory GI: Reports: Other (See Below) Other GI Family History: His mother and sister of liver disease but cannot recall what their specific condition is. - Tobacco Use Smoking Status *Q: Never Smoker - Caffeine Use Caffeine Use: Reports: Coffee - Recreational Drug Use Recreational Drug Use: No ED ROS GENERAL - Review of Systems Review Of Systems: ROS reveals no pertinent complaints other than HPI. ED EXAM, GENERAL - Physical Exam Exam: See Below (see Dictation) Course - Vital Signs Last Recorded V/S: Last Vital Signs Temp 98.3 F 02/23/19 15:28 Pulse 70 02/23/19 17:14 Resp 21 H 02/23/19 17:14 BP 109/55 L 02/23/19 17:14 Pulse Ox 96 02/23/19 17:14 - Orders/Labs/Meds Orders: Active Orders 24 hr Category Date Time Status Admission Status [Patient Status] [ADT] Stat ADT 02/23/19 17:46 Ordered Hemoccult [Fecal Occult Blood Collection] [RC] Care 02/23/19 16:04 Active ASDIRECTED UA RFX COLBY AND CULT IF INDIC [URIN] Stat Lab 02/23/19 16:04 Ordered Labs: Laboratory Tests 02/23/19 02/23/19 02/23/19 Range/Units 16:18 16:18 16:18 WBC 5.91 (4.0-11.0) K/uL RBC 4.06 L (4.50-5.90) M/uL Hgb 9.9 L (13.0-17.0) g/dL Hct 32.0 L (38.0-50.0) % MCV 78.8 L (80.0-98.0) fL MCH 24.4 L (27.0-32.0) pg MCHC 30.9 L (31.0-37.0) g/dL RDW Std Deviation 59.1 (28.0-62.0) fl RDW Coeff of Akbar 21 H (11.0-15.0) % Plt Count 209 (150-400) K/uL MPV 9.20 (7.40-12.00) fL Neut % (Auto) 62.1 (48.0-80.0) % Lymph % (Auto) 23.7 (16.0-40.0) % [place] % (Auto) 12.5 (0.0-15.0) % Eos % (Auto) 1.5 (0.0-7.0) % Baso % (Auto) 0.2 (0.0-1.5) % Neut # (Auto) 3.7 (1.4-5.7) K/uL Lymph # (Auto) 1.4 (0.6-2.4) K/uL [place] # (Auto) 0.7 (0.0-0.8) K/uL Eos # (Auto) 0.1 (0.0-0.7) K/uL Baso # (Auto) 0.0 (0.0-0.1) K/uL Nucleated RBC % 0.0 /100WBC Nucleated RBCs # 0 K/uL INR 2.36 Sodium 143 (136-148) mmol/L Potassium 4.0 (3.5-5.1) mmol/L Chloride 105 (98-107) mmol/L Carbon Dioxide 28.4 (21.0-32.0) mmol/L BUN 66 H (7.0-18.0) mg/dL Creatinine 3.1 H (0.8-1.3) mg/dL Est Cr Clr Drug Dosing 16.77 mL/min Estimated GFR (MDRD) 19.2 ml/min Glucose 95 (74-106) mg/dL Calcium 9.1 (8.5-10.1) mg/dL Total Bilirubin 0.3 (0.2-1.0) mg/dL AST 10 L (15-37) IU/L ALT 18 (14-63) IU/L Alkaline Phosphatase 72 (46-116) U/L Total Protein 6.8 (6.4-8.2) g/dL Albumin 3.0 L (3.4-5.0) g/dL Globulin 3.8 (2.6-4.0) g/dL Albumin/Globulin Ratio 0.8 L (0.9-1.6) Lipase 175 (73-393) U/L Departure - Departure Time of Disposition: 17:31 Disposition: Refer to Observation Clinical Impression: Bright red blood per rectum, History of diverticulosis, Anticoagulated, History of chronic kidney disease - Discharge Information Referrals: PCP,Unknown [Primary Care Provider] - Forms: ED Department Discharge - My Orders Last 24 Hours: My Active Orders 02/23/19 16:04 Hemoccult [Fecal Occult Blood Collection] [RC] ASDIRECTED UA RFX COLBY AND CULT IF INDIC [URIN] Stat 02/23/19 17:46 Admission Status [Patient Status] [ADT] Stat - Assessment/Plan Last 24 Hours: My Active Orders 02/23/19 16:04 Hemoccult [Fecal Occult Blood Collection] [RC] ASDIRECTED UA RFX COLBY AND CULT IF INDIC [URIN] Stat 02/23/19 17:46 Admission Status [Patient Status] [ADT] Stat
[2019-02-23 16:49] LABS: CARBON DIOXIDE,CO2 28.4 mmol/L (21.0-32.0)
[2019-02-23] MEDS ORDERED: Ondansetron 4 MG/2 ML SDV IVPUSH PRN (18:12)
--- NOTE | 2019-02-23 18:18 | PCM.HP.2 ---
H&P History of Present Illness - General Date of Service: 02/23/19 Admit Problem/Dx: Admission Diagnosis/Problem Admission Diagnosis/Problem Bright red blood per rectum - History of Present Illness Initial Comments - Free Text/Narative: 83 yo male with pmh of a.fib on anticoagulation, CKD, diverticulosis, and multiple GI bleeds with iron deficiency anemia. He reports having red blood per rectum for past two years. His last colonoscopy was in 2015. He reports the last two days more blood than normal and has been passing clots. He denies any abdominal pain, diarrhea, lightheadedness, nausea or vomiting. - Related Data Allergies/Adverse Reactions: Allergies Allergy/AdvReac Type Severity Reaction Status Date / Time morphine Allergy Vomiting Verified 02/23/19 18:41 Penicillins Allergy Hives Verified 02/23/19 18:41 Home Medications: Home Meds Allopurinol [Zyloprim] 100 mg PO DAILY 09/03/14 [History] Citalopram [Citalopram HBr] 20 mg PO DAILY 09/03/14 [History] Warfarin [Coumadin] 5 mg PO MOFR@1400 09/03/14 [History] Levothyroxine [Synthroid] 50 mcg PO ACBREAKFAST 05/02/18 [History] Calcium Carbonate/Vitamin D3 [Calcium 500+D Tablet Chew] 1 each PO TID 02/24/19 [History] Folic Acid 0.8 mg PO DAILY 02/24/19 [History] Furosemide [Lasix] 40 mg PO DAILY 02/24/19 [History] Latanoprost/Pf [Latanoprost 0.005% Eye Drop] 1 drop OP DAILY 02/24/19 [History] [place]-3/DHA/Epa/Fish Oil [Fish Oil 500 MG Softgel] 2 each PO DAILY 02/24/19 [ History] Simvastatin [Zocor] 40 mg PO DAILY 02/24/19 [History] Trospium Chloride 20 mg PO DAILY 02/24/19 [History] Vitamin B Complex 1 each PO DAILY 02/24/19 [History] Warfarin [Coumadin] 2.5 mg PO SUTUWETHSA@1400 02/24/19 [History] dilTIAZem HCl [Diltiazem 24Hr ER] 240 mg PO DAILY 02/24/19 [History] Past Medical History HEENT History: Reports: Hard of Hearing Cardiovascular History: Reports: Arrhythmia, Hypertension Respiratory History: Reports: Sleep Apnea Other Respiratory History: Sleep apnea with machine "has not used in over 1 month" Gastrointestinal History: Reports: None Genitourinary History: Reports: Renal Calculus Musculoskeletal History: Reports: Gout Neurological History: Reports: CVA Other Neuro History: hx: Stroke age 50 yrs, residual noted by , is his responses are not always accurate 'he will say no but mean yes', fine motor issues 'cannot button, will come to me to do' Psychiatric History: Reports: Depression Endocrine/Metabolic History: Reports: None Hematologic History: Reports: Anemia Immunologic History: Reports: None Oncologic (Cancer) History: Reports: Prostate Other Oncologic History: Radiation therapy 40 some treatments estimates 3 yrs or > Dermatologic History: Reports: None - Infectious Disease History Infectious Disease History: Reports: Chicken Pox, Measles, Mumps - Past Surgical History Head Surgeries/Procedures: Reports: None HEENT Surgical History: Reports: None Cardiovascular Surgical History: Reports: None Respiratory Surgical History: Reports: None GI Surgical History: Reports: None Male Surgical History: Reports: Other (See Below) Endocrine Surgical History: Reports: None Neurological Surgical History: Reports: Other (See Below) Musculoskeletal Surgical History: Reports: Shoulder Surgery Oncologic Surgical History: Reports: None Dermatological Surgical History: Reports: None Social & Family History - Family History Family Medical History: Noncontributory GI: Reports: Other (See Below) Other GI Family History: His mother and sister of liver disease but cannot recall what their specific condition is. - Tobacco Use Smoking Status *Q: Never Smoker - Caffeine Use Caffeine Use: Reports: Coffee - Recreational Drug Use Recreational Drug Use: No H&P Review of Systems - Review of Systems: Review Of Systems: ROS reveals no pertinent complaints other than HPI. Exam - Exam Exam: See Below - Vital Signs Vital Signs: Last Vital Signs Temp 36.8 C 02/23/19 15:28 Pulse 70 02/23/19 17:14 Resp 21 H 02/23/19 17:14 BP 109/55 L 02/23/19 17:14 Pulse Ox 96 02/23/19 17:14 Weight: 68.039 kg - Exam General: Alert, Oriented HEENT: Conjunctiva Clear Lungs: Clear to Auscultation, Normal Respiratory Effort Cardiovascular: Regular Rate, Regular Rhythm GI/Abdominal Exam: Soft, Non-Tender Extremities: Non-Tender, No Pedal Edema Skin: Warm, Dry, Intact - Patient Data Lab Results Last 24 hrs: Laboratory Results - last 24 hr 02/23/19 02/23/19 02/23/19 Range/Units 16:18 16:18 16:18 WBC 5.91 (4.0-11.0) K/uL RBC 4.06 L (4.50-5.90) M/uL Hgb 9.9 L (13.0-17.0) g/dL Hct 32.0 L (38.0-50.0) % MCV 78.8 L (80.0-98.0) fL MCH 24.4 L (27.0-32.0) pg MCHC 30.9 L (31.0-37.0) g/dL RDW Std Deviation 59.1 (28.0-62.0) fl RDW Coeff of Akbar 21 H (11.0-15.0) % Plt Count 209 (150-400) K/uL MPV 9.20 (7.40-12.00) fL Neut % (Auto) 62.1 (48.0-80.0) % Lymph % (Auto) 23.7 (16.0-40.0) % [place] % (Auto) 12.5 (0.0-15.0) % Eos % (Auto) 1.5 (0.0-7.0) % Baso % (Auto) 0.2 (0.0-1.5) % Neut # (Auto) 3.7 (1.4-5.7) K/uL Lymph # (Auto) 1.4 (0.6-2.4) K/uL [place] # (Auto) 0.7 (0.0-0.8) K/uL Eos # (Auto) 0.1 (0.0-0.7) K/uL Baso # (Auto) 0.0 (0.0-0.1) K/uL Nucleated RBC % 0.0 /100WBC Nucleated RBCs # 0 K/uL INR 2.36 Sodium 143 (136-148) mmol/L Potassium 4.0 (3.5-5.1) mmol/L Chloride 105 (98-107) mmol/L Carbon Dioxide 28.4 (21.0-32.0) mmol/L BUN 66 H (7.0-18.0) mg/dL Creatinine 3.1 H (0.8-1.3) mg/dL Est Cr Clr Drug Dosing 16.77 mL/min Estimated GFR (MDRD) 19.2 ml/min Glucose 95 (74-106) mg/dL Calcium 9.1 (8.5-10.1) mg/dL Total Bilirubin 0.3 (0.2-1.0) mg/dL AST 10 L (15-37) IU/L ALT 18 (14-63) IU/L Alkaline Phosphatase 72 (46-116) U/L Total Protein 6.8 (6.4-8.2) g/dL Albumin 3.0 L (3.4-5.0) g/dL Globulin 3.8 (2.6-4.0) g/dL Albumin/Globulin Ratio 0.8 L (0.9-1.6) Lipase 175 (73-393) U/L Result Diagrams: 02/24/19 05:08 02/24/19 05:08 Problem List Initiated/Reviewed/Updated: Yes Orders Last 24hrs: Active Orders 24 hr Category Date Time Status Admission Status [Patient Status] [ADT] Stat ADT 02/23/19 17:46 Active Antiembolic Devices [RC] PER UNIT ROUTINE Care 02/23/19 18:13 Ordered Oxygen Therapy [RC] PRN Care 02/23/19 18:12 Ordered Up ad Micaela [RC] ASDIRECTED Care 02/23/19 18:12 Ordered VTE/DVT Education [RC] PER UNIT ROUTINE Care 02/23/19 18:12 Ordered Vital Signs [RC] Q4H Care 02/23/19 18:12 Ordered Clear Liquid Diet [DIET] Diet 02/23/19 Breakfast Ordered BASIC METABOLIC PANEL,BMP [CHEM] AM Lab 02/24/19 05:11 Ordered CBC WITH AUTO DIFF [HEME] AM Lab 02/24/19 05:11 Ordered CBC WITH AUTO DIFF [HEME] Routine Lab 02/23/19 22:00 Ordered UA RFX COLBY AND CULT IF INDIC [URIN] Stat Lab 02/23/19 16:04 Ordered Citalopram [Celexa] Med 02/24/19 09:00 Ordered 40 mg PO DAILY Diltiazem HCl [Diltiazem 24Hr ER] Med 02/24/19 09:00 Ordered 240 mg PO DAILY Levothyroxine [Synthroid] Med 02/24/19 09:00 Ordered 50 mcg PO DAILY Ondansetron [Zofran] Med 02/23/19 18:12 Ordered 4 mg IVPUSH Q4H PRN Simvastatin [Zocor] Med 02/23/19 21:00 Ordered 40 mg PO BEDTIME Sodium Chloride 0.9% [Normal Saline] 1,000 ml Med 02/23/19 18:15 Ordered IV ASDIRECTED Sequential Compression Device [OM.PC] Per Unit Routine Oth 02/23/19 18:12 Ordered Resuscitation Status Routine Resus Stat 02/23/19 18:12 Ordered Medication Orders Citalopram Hydrobromide (Celexa) 40 mg PO DAILY [facility] Levothyroxine Sodium (Synthroid) 50 mcg PO DAILY [facility] Non-Formulary Medication (Diltiazem Hcl [Diltiazem 24hr Er]) 240 mg PO DAILY [facility] Simvastatin (Zocor) 40 mg PO BEDTIME [facility] Assessment/Plan Comment:: 83 yo male admitted for lower GI bleed likely acute worsening of chronic bleed. We will monitor overnight and trend Hgb. Dr. Helton has been consulted.
[2019-02-23] MEDS ORDERED: Pantoprazole 40 MG in Sodium Chloride 0.9% 10 ML IV SCH (18:30)
[2019-02-23] MEDS: Sodium Chloride 0.9% 1,000 ML IV SCH (18:53)
[2019-02-23] MEDS ORDERED: Simvastatin 40 MG Tab PO SCH (21:00)
[2019-02-24] MEDS: Sodium Chloride 0.9% 1,000 ML IV SCH (04:27)
[2019-02-24 05:50] LABS: CARBON DIOXIDE,CO2 24.7 mmol/L (21.0-32.0); POTASSIUM,K 3.7 mmol/L (3.5-5.1)
[2019-02-24] MEDS ORDERED: Levothyroxine 50 MCG Tab PO SCH (07:00)
[2019-02-24] MEDS ORDERED: Citalopram 20 MG Tab PO SCH (09:00)
[2019-02-24] MEDS ORDERED: Diltiazem 120 MG Cap.CD PO SCH (09:00)
--- NOTE | 2019-02-24 10:24 | PCM.PN ---
- General Info Date of Service: 02/24/19 - Review of Systems Systems Review Comment:: patient reports no blood in stool since admission - Patient Data Vitals - Most Recent: Last Vital Signs Temp 36.4 C 02/24/19 07:33 Pulse 66 02/24/19 08:29 Resp 16 02/24/19 07:33 BP 129/68 02/24/19 08:29 Pulse Ox 95 02/24/19 07:33 Weight - Most Recent: 68.039 kg I&O - Last 24 Hours: Intake & Output 02/23/19 02/24/19 02/24/19 22:59 06:59 14:59 Intake Total 1302 Output Total 800 Balance 502 Lab Results Last 24 Hours: Laboratory Results - last 24 hr 02/23/19 02/23/19 02/23/19 Range/Units 16:18 16:18 16:18 WBC 5.91 (4.0-11.0) K/uL RBC 4.06 L (4.50-5.90) M/uL Hgb 9.9 L (13.0-17.0) g/dL Hct 32.0 L (38.0-50.0) % MCV 78.8 L (80.0-98.0) fL MCH 24.4 L (27.0-32.0) pg MCHC 30.9 L (31.0-37.0) g/dL RDW Std Deviation 59.1 (28.0-62.0) fl RDW Coeff of Akbar 21 H (11.0-15.0) % Plt Count 209 (150-400) K/uL MPV 9.20 (7.40-12.00) fL Neut % (Auto) 62.1 (48.0-80.0) % Lymph % (Auto) 23.7 (16.0-40.0) % [place] % (Auto) 12.5 (0.0-15.0) % Eos % (Auto) 1.5 (0.0-7.0) % Baso % (Auto) 0.2 (0.0-1.5) % Neut # (Auto) 3.7 (1.4-5.7) K/uL Lymph # (Auto) 1.4 (0.6-2.4) K/uL [place] # (Auto) 0.7 (0.0-0.8) K/uL Eos # (Auto) 0.1 (0.0-0.7) K/uL Baso # (Auto) 0.0 (0.0-0.1) K/uL Nucleated RBC % 0.0 /100WBC Nucleated RBCs # 0 K/uL INR 2.36 Sodium 143 (136-148) mmol/L Potassium 4.0 (3.5-5.1) mmol/L Chloride 105 (98-107) mmol/L Carbon Dioxide 28.4 (21.0-32.0) mmol/L BUN 66 H (7.0-18.0) mg/dL Creatinine 3.1 H (0.8-1.3) mg/dL Est Cr Clr Drug Dosing 16.77 mL/min Estimated GFR (MDRD) 19.2 ml/min Glucose 95 (74-106) mg/dL Calcium 9.1 (8.5-10.1) mg/dL Total Bilirubin 0.3 (0.2-1.0) mg/dL AST 10 L (15-37) IU/L ALT 18 (14-63) IU/L Alkaline Phosphatase 72 (46-116) U/L Total Protein 6.8 (6.4-8.2) g/dL Albumin 3.0 L (3.4-5.0) g/dL Globulin 3.8 (2.6-4.0) g/dL Albumin/Globulin Ratio 0.8 L (0.9-1.6) Lipase 175 (73-393) U/L Urine Color Urine Appearance Urine pH (5.0-8.0) Ur Specific [place] (1.001-1.035) Urine Protein (NEGATIVE) mg/dL Urine Glucose (UA) (NEGATIVE) mg/dL Urine Ketones (NEGATIVE) mg/dL Urine Occult Blood (NEGATIVE) Urine Nitrite (NEGATIVE) Urine Bilirubin (NEGATIVE) Urine Urobilinogen (<2.0) EU/dL Ur Leukocyte Esterase (NEGATIVE) Urine RBC (0-2/HPF) Urine WBC (0-5/HPF) Ur Epithelial Cells (NONE-FEW) Urine Bacteria (NEGATIVE) 02/23/19 02/23/19 02/24/19 Range/Units 21:00 22:09 05:08 WBC 6.14 6.03 (4.0-11.0) K/uL RBC 4.02 L 3.97 L (4.50-5.90) M/uL Hgb 9.6 L 9.6 L (13.0-17.0) g/dL Hct 31.7 L 31.2 L (38.0-50.0) % MCV 78.9 L 78.6 L (80.0-98.0) fL MCH 23.9 L 24.2 L (27.0-32.0) pg MCHC 30.3 L 30.8 L (31.0-37.0) g/dL RDW Std Deviation 58.1 58.5 (28.0-62.0) fl RDW Coeff of Akbar 20 H 20 H (11.0-15.0) % Plt Count 202 204 (150-400) K/uL MPV 9.10 9.20 (7.40-12.00) fL Neut % (Auto) 62.0 59.8 (48.0-80.0) % Lymph % (Auto) 28.7 26.9 (16.0-40.0) % [place] % (Auto) 7.8 10.9 (0.0-15.0) % Eos % (Auto) 1.3 2.2 (0.0-7.0) % Baso % (Auto) 0.2 0.2 (0.0-1.5) % Neut # (Auto) 3.8 3.6 (1.4-5.7) K/uL Lymph # (Auto) 1.8 1.6 (0.6-2.4) K/uL [place] # (Auto) 0.5 0.7 (0.0-0.8) K/uL Eos # (Auto) 0.1 0.1 (0.0-0.7) K/uL Baso # (Auto) 0.0 0.0 (0.0-0.1) K/uL Nucleated RBC % 0.0 0.0 /100WBC Nucleated RBCs # 0 0 K/uL INR Sodium (136-148) mmol/L Potassium (3.5-5.1) mmol/L Chloride (98-107) mmol/L Carbon Dioxide (21.0-32.0) mmol/L BUN (7.0-18.0) mg/dL Creatinine (0.8-1.3) mg/dL Est Cr Clr Drug Dosing mL/min Estimated GFR (MDRD) ml/min Glucose (74-106) mg/dL Calcium (8.5-10.1) mg/dL Total Bilirubin (0.2-1.0) mg/dL AST (15-37) IU/L ALT (14-63) IU/L Alkaline Phosphatase (46-116) U/L Total Protein (6.4-8.2) g/dL Albumin (3.4-5.0) g/dL Globulin (2.6-4.0) g/dL Albumin/Globulin Ratio (0.9-1.6) Lipase (73-393) U/L Urine Color YELLOW Urine Appearance CLEAR Urine pH 6.5 (5.0-8.0) Ur Specific [place] 1.015 (1.001-1.035) Urine Protein 30 H (NEGATIVE) mg/dL Urine Glucose (UA) NEGATIVE (NEGATIVE) mg/dL Urine Ketones NEGATIVE (NEGATIVE) mg/dL Urine Occult Blood SMALL H (NEGATIVE) Urine Nitrite NEGATIVE (NEGATIVE) Urine Bilirubin NEGATIVE (NEGATIVE) Urine Urobilinogen 0.2 (<2.0) EU/dL Ur Leukocyte Esterase NEGATIVE (NEGATIVE) Urine RBC 0-2 (0-2/HPF) Urine WBC 0-2 (0-5/HPF) Ur Epithelial Cells OCCASIONAL (NONE-FEW) Urine Bacteria FEW (NEGATIVE) 02/24/19 Range/Units 05:08 WBC (4.0-11.0) K/uL RBC (4.50-5.90) M/uL Hgb (13.0-17.0) g/dL Hct (38.0-50.0) % MCV (80.0-98.0) fL MCH (27.0-32.0) pg MCHC (31.0-37.0) g/dL RDW Std Deviation (28.0-62.0) fl RDW Coeff of Akbar (11.0-15.0) % Plt Count (150-400) K/uL MPV (7.40-12.00) fL Neut % (Auto) (48.0-80.0) % Lymph % (Auto) (16.0-40.0) % [place] % (Auto) (0.0-15.0) % Eos % (Auto) (0.0-7.0) % Baso % (Auto) (0.0-1.5) % Neut # (Auto) (1.4-5.7) K/uL Lymph # (Auto) (0.6-2.4) K/uL [place] # (Auto) (0.0-0.8) K/uL Eos # (Auto) (0.0-0.7) K/uL Baso # (Auto) (0.0-0.1) K/uL Nucleated RBC % /100WBC Nucleated RBCs # K/uL INR Sodium 144 (136-148) mmol/L Potassium 3.7 (3.5-5.1) mmol/L Chloride 109 H (98-107) mmol/L Carbon Dioxide 24.7 (21.0-32.0) mmol/L BUN 57 H (7.0-18.0) mg/dL Creatinine 2.7 H (0.8-1.3) mg/dL Est Cr Clr Drug Dosing 20.00 mL/min Estimated GFR (MDRD) 22.6 ml/min Glucose 87 (74-106) mg/dL Calcium 8.3 L (8.5-10.1) mg/dL Total Bilirubin (0.2-1.0) mg/dL AST (15-37) IU/L ALT (14-63) IU/L Alkaline Phosphatase (46-116) U/L Total Protein (6.4-8.2) g/dL Albumin (3.4-5.0) g/dL Globulin (2.6-4.0) g/dL Albumin/Globulin Ratio (0.9-1.6) Lipase (73-393) U/L Urine Color Urine Appearance Urine pH (5.0-8.0) Ur Specific [place] (1.001-1.035) Urine Protein (NEGATIVE) mg/dL Urine Glucose (UA) (NEGATIVE) mg/dL Urine Ketones (NEGATIVE) mg/dL Urine Occult Blood (NEGATIVE) Urine Nitrite (NEGATIVE) Urine Bilirubin (NEGATIVE) Urine Urobilinogen (<2.0) EU/dL Ur Leukocyte Esterase (NEGATIVE) Urine RBC (0-2/HPF) Urine WBC (0-5/HPF) Ur Epithelial Cells (NONE-FEW) Urine Bacteria (NEGATIVE) Med Orders - Current: Current Medications Citalopram Hydrobromide (Celexa) 40 mg PO DAILY [facility] Last Admin: 02/24/19 08:30 Dose: 40 mg Diltiazem HCl (Cardizem Cd) 240 mg PO DAILY [facility] Last Admin: 02/24/19 08:29 Dose: 240 mg Pantoprazole Sodium 40 mg/ (Sodium Chloride) 10 mls @ 300 mls/hr IV Q24H [facility] Last Admin: 02/23/19 18:53 Dose: 300 mls/hr Iron Sucrose 200 mg/ Sodium (Chloride) 110 mls @ 220 mls/hr IV ONETIME ONE Stop: 02/24/19 10:59 Levothyroxine Sodium (Synthroid) 50 mcg PO ACBREAKFAST [facility] Ondansetron HCl (Zofran) 4 mg IVPUSH Q4H PRN PRN Reason: Nausea Simvastatin (Zocor) 40 mg PO BEDTIME [facility] Last Admin: 02/23/19 21:03 Dose: 40 mg Discontinued Medications Sodium Chloride (Normal Saline) 1,000 mls @ 100 mls/hr IV ASDIRECTED [facility] Last Admin: 02/24/19 04:27 Dose: 100 mls/hr Levothyroxine Sodium (Synthroid) 50 mcg PO DAILY@0700 [facility] Last Admin: 02/24/19 06:33 Dose: 50 mcg - Exam General: Alert, Oriented Neck: Supple Lungs: Clear to Auscultation, Normal Respiratory Effort Cardiovascular: Regular Rate, Regular Rhythm GI/Abdominal Exam: Non-Tender, No Distention - Problem List Review Problem List Initiated/Reviewed/Updated: Yes - My Orders Last 24 Hours: My Active Orders 02/23/19 18:12 Oxygen Therapy [RC] PRN Up ad Micaela [RC] ASDIRECTED VTE/DVT Education [RC] PER UNIT ROUTINE Vital Signs [RC] Q4H Ondansetron [Zofran] 4 mg IVPUSH Q4H PRN Sequential Compression Device [OM.PC] Per Unit Routine Resuscitation Status Routine 02/23/19 18:13 Antiembolic Devices [RC] PER UNIT ROUTINE 02/23/19 18:30 Pantoprazole [ProTONIX IV] 40 mg Sodium Chloride 0.9% [Normal Saline] 10 ml IV Q24H 02/23/19 21:00 Simvastatin [Zocor] 40 mg PO BEDTIME 02/24/19 09:00 Citalopram [Celexa] 40 mg PO DAILY Diltiazem [Cardizem CD] 240 mg PO DAILY 02/24/19 09:10 Notify Provider Consults [RC] ASDIRECTED Consult to Physician [CONS] Routine 02/24/19 10:30 Iron Sucrose Complex [Venofer] 200 mg Sodium Chloride 0.9% [Normal Saline] 100 ml IV ONETIME 02/25/19 05:11 BASIC METABOLIC PANEL,BMP [CHEM] AM CBC WITH AUTO DIFF [HEME] AM 02/25/19 07:30 Levothyroxine [Synthroid] 50 mcg PO ACBREAKFAST - Plan Plan:: 83 yo male admitted for lower GI bleed likely acute worsening of chronic bleed. Dr. Helton has been consulted. Hgb has remained stable. Patient has been referred as an outpatient for iron infusions. We will start first dose today. Holding Coumadin.
[2019-02-24] MEDS ORDERED: Iron Sucrose Complex 200 MG in Sodium Chloride 0.9% 100 ML IV ONE (10:30)
[2019-02-24 11:22] VITALS: BP 104/61; PULSE 62
--- NOTE | 2019-02-24 14:34 | PCM.CONS ---
H&P History of Present Illness - General Date of Service: 02/24/19 Admit Problem/Dx: Admission Diagnosis/Problem Admission Diagnosis/Problem Bright red blood per rectum Source of Information: Patient, Family History Limitations: Reports: No Limitations - History of Present Illness Initial Comments - Free Text/Narative: Patient is an 83 year old male who presented to the ER last night with BRBPR. He has a history of a iron deficiency anemia and his family noted him to be more tired than usual. He had a couple bloody bowel movements and was brought into the ER. His vitals were stable on arrival. He was found to have a hemoglobin of 9.9. He has atrial fibrillation and is on Coumadin. He was therapeutic. He was admitted to the hospitalist team for observation. He was given a clear liquid diet. He had one more BM after admission, but none since. He feels well now. His hemoglobin has been stable since admission and he denies SOB, dizziness, or chest pain. His family states that he is more awake and alert now. His last colonoscopy was in [address] Contreras and showed diverticulosis. - Related Data Allergies/Adverse Reactions: Allergies Allergy/AdvReac Type Severity Reaction Status Date / Time morphine Allergy Vomiting Verified 02/23/19 18:41 Penicillins Allergy Hives Verified 02/23/19 18:41 Home Medications: Home Meds Allopurinol [Zyloprim] 100 mg PO DAILY 09/03/14 [History] Citalopram [Citalopram HBr] 20 mg PO DAILY 09/03/14 [History] Warfarin [Coumadin] 5 mg PO MOFR@1400 09/03/14 [History] Levothyroxine [Synthroid] 50 mcg PO ACBREAKFAST 05/02/18 [History] Calcium Carbonate/Vitamin D3 [Calcium 500+D Tablet Chew] 1 each PO TID 02/24/19 [History] Folic Acid 0.8 mg PO DAILY 02/24/19 [History] Furosemide [Lasix] 40 mg PO DAILY 02/24/19 [History] Latanoprost/Pf [Latanoprost 0.005% Eye Drop] 1 drop OP DAILY 02/24/19 [History] Warren-3/DHA/Epa/Fish Oil [Fish Oil 500 MG Softgel] 2 each PO DAILY 02/24/19 [ History] Simvastatin [Zocor] 40 mg PO DAILY 02/24/19 [History] Trospium Chloride 20 mg PO DAILY 02/24/19 [History] Vitamin B Complex 1 each PO DAILY 02/24/19 [History] Warfarin [Coumadin] 2.5 mg PO SUTUWETHSA@1400 02/24/19 [History] dilTIAZem HCl [Diltiazem 24Hr ER] 240 mg PO DAILY 02/24/19 [History] Past Medical History HEENT History: Reports: Hard of Hearing Other HEENT History: upper dentures Cardiovascular History: Reports: Arrhythmia, Hypertension Respiratory History: Reports: Sleep Apnea Other Respiratory History: Sleep apnea with machine "has not used in over 1 month" Gastrointestinal History: Reports: None Genitourinary History: Reports: Renal Calculus Musculoskeletal History: Reports: Gout Neurological History: Reports: CVA Other Neuro History: hx: Stroke age 50 yrs, residual noted by , is his responses are not always accurate 'he will say no but mean yes', fine motor issues 'cannot button, will come to me to do' Psychiatric History: Reports: Depression Endocrine/Metabolic History: Reports: None Hematologic History: Reports: Anemia Immunologic History: Reports: None Oncologic (Cancer) History: Reports: Prostate Other Oncologic History: Radiation therapy 40 some treatments estimates 3 yrs or > Dermatologic History: Reports: None - Infectious Disease History Infectious Disease History: Reports: Chicken Pox, Measles, Mumps - Past Surgical History Head Surgeries/Procedures: Reports: None HEENT Surgical History: Reports: None Cardiovascular Surgical History: Reports: None Respiratory Surgical History: Reports: None GI Surgical History: Reports: None Male Surgical History: Reports: Other (See Below) Endocrine Surgical History: Reports: None Neurological Surgical History: Reports: Other (See Below) Musculoskeletal Surgical History: Reports: Shoulder Surgery Oncologic Surgical History: Reports: None Dermatological Surgical History: Reports: None Social & Family History - Family History Family Medical History: Noncontributory GI: Reports: Other (See Below) Other GI Family History: His mother and sister of liver disease but cannot recall what their specific condition is. - Tobacco Use Smoking Status *Q: Never Smoker Second Hand Smoke Exposure: No - Caffeine Use Caffeine Use: Reports: Coffee - Recreational Drug Use Recreational Drug Use: No H&P Review of Systems - Review of Systems: Review Of Systems: ROS reveals no pertinent complaints other than HPI. Exam - Exam Exam: See Below - Vital Signs Vital Signs: Last Vital Signs Temp 36.3 C 02/24/19 11:00 Pulse 62 02/24/19 11:00 Resp 16 02/24/19 11:00 BP 104/61 02/24/19 11:00 Pulse Ox 97 02/24/19 11:00 Weight: 68.039 kg - Exam General: Alert, Oriented HEENT: Conjunctiva Clear, Mucosa Moist & Marion, Posterior Pharynx Clear Neck: Supple Lungs: Clear to Auscultation, Normal Respiratory Effort Cardiovascular: Regular Rate, Irregular Rhythm GI/Abdominal Exam: Soft, Non-Tender, No Distention, No Mass Rectal (Males) Exam: Normal Exam, Other (Brown liquid stool. ). No: Decreased Rectal Tone, Hemorrhoids, Mass, Prostate Nodule Extremities: Normal Inspection, Normal Range of Motion - Patient Data Lab Results Last 24 hrs: Laboratory Results - last 24 hr 02/23/19 02/23/19 02/23/19 Range/Units 16:18 16:18 16:18 WBC 5.91 (4.0-11.0) K/uL RBC 4.06 L (4.50-5.90) M/uL Hgb 9.9 L (13.0-17.0) g/dL Hct 32.0 L (38.0-50.0) % MCV 78.8 L (80.0-98.0) fL MCH 24.4 L (27.0-32.0) pg MCHC 30.9 L (31.0-37.0) g/dL RDW Std Deviation 59.1 (28.0-62.0) fl RDW Coeff of Akbar 21 H (11.0-15.0) % Plt Count 209 (150-400) K/uL MPV 9.20 (7.40-12.00) fL Neut % (Auto) 62.1 (48.0-80.0) % Lymph % (Auto) 23.7 (16.0-40.0) % Runnels % (Auto) 12.5 (0.0-15.0) % Eos % (Auto) 1.5 (0.0-7.0) % Baso % (Auto) 0.2 (0.0-1.5) % Neut # (Auto) 3.7 (1.4-5.7) K/uL Lymph # (Auto) 1.4 (0.6-2.4) K/uL Runnels # (Auto) 0.7 (0.0-0.8) K/uL Eos # (Auto) 0.1 (0.0-0.7) K/uL Baso # (Auto) 0.0 (0.0-0.1) K/uL Nucleated RBC % 0.0 /100WBC Nucleated RBCs # 0 K/uL INR 2.36 Sodium 143 (136-148) mmol/L Potassium 4.0 (3.5-5.1) mmol/L Chloride 105 (98-107) mmol/L Carbon Dioxide 28.4 (21.0-32.0) mmol/L BUN 66 H (7.0-18.0) mg/dL Creatinine 3.1 H (0.8-1.3) mg/dL Est Cr Clr Drug Dosing 16.77 mL/min Estimated GFR (MDRD) 19.2 ml/min Glucose 95 (74-106) mg/dL Calcium 9.1 (8.5-10.1) mg/dL Total Bilirubin 0.3 (0.2-1.0) mg/dL AST 10 L (15-37) IU/L ALT 18 (14-63) IU/L Alkaline Phosphatase 72 (46-116) U/L Total Protein 6.8 (6.4-8.2) g/dL Albumin 3.0 L (3.4-5.0) g/dL Globulin 3.8 (2.6-4.0) g/dL Albumin/Globulin Ratio 0.8 L (0.9-1.6) Lipase 175 (73-393) U/L Urine Color Urine Appearance Urine pH (5.0-8.0) Ur Specific Itmann (1.001-1.035) Urine Protein (NEGATIVE) mg/dL Urine Glucose (UA) (NEGATIVE) mg/dL Urine Ketones (NEGATIVE) mg/dL Urine Occult Blood (NEGATIVE) Urine Nitrite (NEGATIVE) Urine Bilirubin (NEGATIVE) Urine Urobilinogen (<2.0) EU/dL Ur Leukocyte Esterase (NEGATIVE) Urine RBC (0-2/HPF) Urine WBC (0-5/HPF) Ur Epithelial Cells (NONE-FEW) Urine Bacteria (NEGATIVE) 02/23/19 02/23/19 02/24/19 Range/Units 21:00 22:09 05:08 WBC 6.14 6.03 (4.0-11.0) K/uL RBC 4.02 L 3.97 L (4.50-5.90) M/uL Hgb 9.6 L 9.6 L (13.0-17.0) g/dL Hct 31.7 L 31.2 L (38.0-50.0) % MCV 78.9 L 78.6 L (80.0-98.0) fL MCH 23.9 L 24.2 L (27.0-32.0) pg MCHC 30.3 L 30.8 L (31.0-37.0) g/dL RDW Std Deviation 58.1 58.5 (28.0-62.0) fl RDW Coeff of Akbar 20 H 20 H (11.0-15.0) % Plt Count 202 204 (150-400) K/uL MPV 9.10 9.20 (7.40-12.00) fL Neut % (Auto) 62.0 59.8 (48.0-80.0) % Lymph % (Auto) 28.7 26.9 (16.0-40.0) % Runnels % (Auto) 7.8 10.9 (0.0-15.0) % Eos % (Auto) 1.3 2.2 (0.0-7.0) % Baso % (Auto) 0.2 0.2 (0.0-1.5) % Neut # (Auto) 3.8 3.6 (1.4-5.7) K/uL Lymph # (Auto) 1.8 1.6 (0.6-2.4) K/uL Runnels # (Auto) 0.5 0.7 (0.0-0.8) K/uL Eos # (Auto) 0.1 0.1 (0.0-0.7) K/uL Baso # (Auto) 0.0 0.0 (0.0-0.1) K/uL Nucleated RBC % 0.0 0.0 /100WBC Nucleated RBCs # 0 0 K/uL INR Sodium (136-148) mmol/L Potassium (3.5-5.1) mmol/L Chloride (98-107) mmol/L Carbon Dioxide (21.0-32.0) mmol/L BUN (7.0-18.0) mg/dL Creatinine (0.8-1.3) mg/dL Est Cr Clr Drug Dosing mL/min Estimated GFR (MDRD) ml/min Glucose (74-106) mg/dL Calcium (8.5-10.1) mg/dL Total Bilirubin (0.2-1.0) mg/dL AST (15-37) IU/L ALT (14-63) IU/L Alkaline Phosphatase (46-116) U/L Total Protein (6.4-8.2) g/dL Albumin (3.4-5.0) g/dL Globulin (2.6-4.0) g/dL Albumin/Globulin Ratio (0.9-1.6) Lipase (73-393) U/L Urine Color YELLOW Urine Appearance CLEAR Urine pH 6.5 (5.0-8.0) Ur Specific Itmann 1.015 (1.001-1.035) Urine Protein 30 H (NEGATIVE) mg/dL Urine Glucose (UA) NEGATIVE (NEGATIVE) mg/dL Urine Ketones NEGATIVE (NEGATIVE) mg/dL Urine Occult Blood SMALL H (NEGATIVE) Urine Nitrite NEGATIVE (NEGATIVE) Urine Bilirubin NEGATIVE (NEGATIVE) Urine Urobilinogen 0.2 (<2.0) EU/dL Ur Leukocyte Esterase NEGATIVE (NEGATIVE) Urine RBC 0-2 (0-2/HPF) Urine WBC 0-2 (0-5/HPF) Ur Epithelial Cells OCCASIONAL (NONE-FEW) Urine Bacteria FEW (NEGATIVE) 02/24/19 02/24/19 02/24/19 Range/Units 05:08 10:38 14:03 WBC 5.96 (4.0-11.0) K/uL RBC 4.30 L (4.50-5.90) M/uL Hgb 10.3 L (13.0-17.0) g/dL Hct 34.0 L (38.0-50.0) % MCV 79.1 L (80.0-98.0) fL MCH 24.0 L (27.0-32.0) pg MCHC 30.3 L (31.0-37.0) g/dL RDW Std Deviation 59.1 (28.0-62.0) fl RDW Coeff of Akbar 21 H (11.0-15.0) % Plt Count 201 (150-400) K/uL MPV 9.30 (7.40-12.00) fL Neut % (Auto) (48.0-80.0) % Lymph % (Auto) (16.0-40.0) % Runnels % (Auto) (0.0-15.0) % Eos % (Auto) (0.0-7.0) % Baso % (Auto) (0.0-1.5) % Neut # (Auto) (1.4-5.7) K/uL Lymph # (Auto) (0.6-2.4) K/uL Runnels # (Auto) (0.0-0.8) K/uL Eos # (Auto) (0.0-0.7) K/uL Baso # (Auto) (0.0-0.1) K/uL Nucleated RBC % 0.0 /100WBC Nucleated RBCs # 0 K/uL INR 2.26 Sodium 144 (136-148) mmol/L Potassium 3.7 (3.5-5.1) mmol/L Chloride 109 H (98-107) mmol/L Carbon Dioxide 24.7 (21.0-32.0) mmol/L BUN 57 H (7.0-18.0) mg/dL Creatinine 2.7 H (0.8-1.3) mg/dL Est Cr Clr Drug Dosing 20.00 mL/min Estimated GFR (MDRD) 22.6 ml/min Glucose 87 (74-106) mg/dL Calcium 8.3 L (8.5-10.1) mg/dL Total Bilirubin (0.2-1.0) mg/dL AST (15-37) IU/L ALT (14-63) IU/L Alkaline Phosphatase (46-116) U/L Total Protein (6.4-8.2) g/dL Albumin (3.4-5.0) g/dL Globulin (2.6-4.0) g/dL Albumin/Globulin Ratio (0.9-1.6) Lipase (73-393) U/L Urine Color Urine Appearance Urine pH (5.0-8.0) Ur Specific Itmann (1.001-1.035) Urine Protein (NEGATIVE) mg/dL Urine Glucose (UA) (NEGATIVE) mg/dL Urine Ketones (NEGATIVE) mg/dL Urine Occult Blood (NEGATIVE) Urine Nitrite (NEGATIVE) Urine Bilirubin (NEGATIVE) Urine Urobilinogen (<2.0) EU/dL Ur Leukocyte Esterase (NEGATIVE) Urine RBC (0-2/HPF) Urine WBC (0-5/HPF) Ur Epithelial Cells (NONE-FEW) Urine Bacteria (NEGATIVE) Result Diagrams: 02/24/19 14:03 02/24/19 05:08 Consult PN Assessment/Plan Procedures: Procedures AIRWAY INHALATION TREATMENT (05/02/18) ANTINUCLEAR ANTIBODIES (03/20/17) ASSAY IGA/IGD/IGG/IGM EACH (09/03/18) ASSAY NEPHELOMETRY NOT SPEC (09/03/18) ASSAY OF AMMONIA (03/31/16) ASSAY OF BETA-2 PROTEIN (05/02/16) ASSAY OF BLOOD/URIC ACID (05/06/18) ASSAY OF CALCIUM (03/20/17) ASSAY OF ERYTHROPOIETIN (04/05/16) ASSAY OF FERRITIN (12/10/18) ASSAY OF FOLIC ACID SERUM (04/05/16) ASSAY OF HAPTOGLOBIN QUANT (04/05/16) ASSAY OF LACTIC ACID (03/31/16) ASSAY OF LDH ENZYMES (04/05/16) ASSAY OF MAGNESIUM (05/06/18) ASSAY OF NATRIURETIC PEPTIDE (03/31/16) ASSAY OF PARATHORMONE (05/06/18) ASSAY OF PROTEIN SERUM (09/03/18) ASSAY OF PROTEIN URINE (05/06/18) ASSAY OF TROPONIN QUANT (03/31/16) ASSAY OF URINE CREATININE (05/06/18) ASSAY THYROID STIM HORMONE (04/05/16) AUTOMATED RETICULOCYTE COUNT (04/05/16) BLOOD CULTURE FOR BACTERIA (03/31/16) BONE MARROW INTERPRETATION (05/02/16) C-REACTIVE PROTEIN (05/02/16) CHEST X-RAY 1 VIEW FRONTAL (03/31/16) CHEST X-RAY 2VW FRONTAL&LATL (03/03/16) COLONOSCOPY AND BIOPSY (06/24/15) COLONOSCOPY W/LESION REMOVAL (06/24/15) COMPLEMENT ANTIGEN (03/20/17) COMPLETE CBC AUTOMATED (12/05/18) COMPLETE CBC W/AUTO DIFF WBC (12/10/18) COMPREHEN METABOLIC PANEL (12/10/18) CONTRAST X-RAY EXAM OF COLON (09/25/17) CONTROL OF NOSEBLEED (10/20/18) CONTROL OF NOSEBLEED (10/18/18) CT ABD & PELVIS W/O CONTRAST (03/31/16) CT HEAD/BRAIN W/O DYE (10/12/18) CULTURE SCREEN ONLY (05/15/14) CYTOGENETICS DNA PROBE (05/02/16) CYTOPATH FL NONGYN SMEARS (05/02/16) DEBRIDE NAIL 6 OR MORE (09/08/18) DECALCIFY TISSUE (05/02/16) DX BONE MARROW BIOPSIES (05/02/16) ELECTROCARDIOGRAM TRACING (05/02/18) EMERGENCY DEPT VISIT (10/20/18) EMERGENCY DEPT VISIT (10/18/18) EMERGENCY DEPT VISIT (05/02/18) EMERGENCY DEPT VISIT (03/31/16) EMERGENCY DEPT VISIT (03/03/16) EMERGENCY DEPT VISIT (01/19/15) EMERGENCY DEPT VISIT (09/03/14) EMERGENCY DEPT VISIT (09/03/14) EMERGENCY DEPT VISIT (05/15/14) EXTREMITY STUDY (09/16/14) FLOWCYTOMETRY/ TC 1 MARKER (05/02/16) FLUORESCENT ANTIBODY TITER (03/20/17) GLUCOSE BLOOD TEST (03/31/16) HEMATOCRIT (09/20/15) HEMOGLOBIN (09/20/15) HEPATIC FUNCTION PANEL (01/20/18) IMMUNFIX E-PHORSIS/URINE/CSF (05/02/16) IMMUNIZATION ADMIN (03/03/16) IMMUNOASSAY NONANTIBODY (03/20/17) IMMUNOFIX E-PHORESIS SERUM (09/03/18) INFLUENZA ASSAY W/OPTIC (05/02/18) IRON BINDING TEST (12/10/18) METABOLIC PANEL TOTAL CA (10/30/18) MRI LUMBAR SPINE W/O DYE (09/18/16) OCCULT BLD FECES 1-3 TESTS (03/31/16) OCCULT BLOOD FECES (05/23/15) OFFICE/OUTPATIENT VISIT EST (11/12/18) OFFICE/OUTPATIENT VISIT EST (10/30/18) OFFICE/OUTPATIENT VISIT EST (09/08/18) OFFICE/OUTPATIENT VISIT EST (06/19/16) OFFICE/OUTPATIENT VISIT EST (09/28/15) OFFICE/OUTPATIENT VISIT EST (09/20/15) OFFICE/OUTPATIENT VISIT EST (08/23/15) OFFICE/OUTPATIENT VISIT EST (07/28/15) OFFICE/OUTPATIENT VISIT EST (05/13/15) OFFICE/OUTPATIENT VISIT EST (04/18/15) OFFICE/OUTPATIENT VISIT EST (02/08/14) PCV13 VACCINE IM (05/06/18) PPSV23 VACC 2 YRS+ SUBQ/IM (05/13/15) PROTEIN E-PHORESIS SERUM (09/03/18) PROTEIN E-PHORESIS/URINE/CSF (03/20/17) PROTHROMBIN TIME (10/23/18) RBC SED RATE AUTOMATED (05/02/16) RENAL FUNCTION PANEL (12/05/18) ROUTINE VENIPUNCTURE (12/10/18) SPECIAL STAINS GROUP 1 (05/02/16) STREP A AG IA (05/15/14) TD VACC NO PRESV 7 YRS+ IM (03/03/16) TDAP VACCINE 7 YRS/> IM (05/13/15) THER/PROPH/DIAG IV INF INIT (09/03/18) TISSUE EXAM BY PATHOLOGIST (05/02/16) TTE W/DOPPLER COMPLETE (09/24/17) TX/PRO/DX INJ NEW DRUG ADDON (03/31/16) URINALYSIS AUTO W/SCOPE (05/06/18) URINALYSIS NONAUTO W/SCOPE (01/10/15) URINE CULTURE/COLONY COUNT (03/31/16) US EXAM ABDO BACK WALL HEREDIA (03/26/17) VASCULAR STUDY (03/26/17) VITAMIN B-12 (04/05/16) VITAMIN D 25 HYDROXY (05/06/18) X-RAY EXAM CHEST 2 VIEWS (05/02/18) X-RAY EXAM HIP UNI 2-3 VIEWS (10/12/18) X-RAY EXAM OF ELBOW (02/22/16) X-RAY EXAM OF FEMUR 2/> (02/22/16) X-RAY EXAM OF KNEE 3 (09/03/14) X-RAY EXAM OF PELVIS (02/22/16) X-RAY EXAM OF WRIST (11/12/18) X-RAY EXAM OF WRIST (10/12/18) X-RAY EXAM RIBS UNI 2 VIEWS (10/12/18) X-RAYS BONE SURVEY COMPLETE (05/02/16) Problem List Initiated/Reviewed/Updated: Yes Plan: I had a long discussion with the patient and his family regarding this bleed. I sent a FOBT. I offered in house colonoscopy, vs outpatient colonoscopy or barium enema. After discussion of all the risks and benefits, they would like to perform an outpatient barium enema. His hemoglobin is stable and so I feel this is a safe option. He can eat a regular diet. D/C per primary team. Will follow up in clinic in one week.
--- NOTE | 2019-02-24 14:36 | PCM.DCSUM1 ---
Discharge Summary - Discharge Data Discharge Date: 02/24/19 Discharge Disposition: Home, Self-Care 01 Condition: Fair - Referral to Home Health Primary Care Physician: PCP Unknown - Patient Summary/Data Consults: Consultations 02/24/19 09:10 Consult to Physician [CONS] Routine Hospital Course: 83 yo male admitted for lower GI bleed. He has a past medical history of a.fib on anticoagulation, CKD, diverticulosis, prostate cancer s/p radiation therapy, and multiple GI bleeds with iron deficiency anemia. He reports having red blood per rectum for past two years. His last colonoscopy was in 2015. He reports the last two days more blood than normal and has been passing clots. He was admitted and monitored overnight with no more bloody stools. Dr. Helton was consulted and offered colonoscopy. After discussing with family patient preferred outpatient follow up with Dr. Helton. Patient was started on Iron infusion and a prescription was given to continue outpatient IV infusions. Patient is requesting discharge. He is hemodynamically stable and Hgb is stable at 10.3 at discharge. - Discharge Plan Home Medications: Home Meds Allopurinol [Zyloprim] 100 mg PO DAILY 09/03/14 [History] Citalopram [Citalopram HBr] 20 mg PO DAILY 09/03/14 [History] Warfarin [Coumadin] 5 mg PO MOFR@1400 09/03/14 [History] Levothyroxine [Synthroid] 50 mcg PO ACBREAKFAST 05/02/18 [History] Calcium Carbonate/Vitamin D3 [Calcium 500+D Tablet Chew] 1 each PO TID 02/24/19 [History] Folic Acid 0.8 mg PO DAILY 02/24/19 [History] Furosemide [Lasix] 40 mg PO DAILY 02/24/19 [History] Latanoprost/Pf [Latanoprost 0.005% Eye Drop] 1 drop OP DAILY 02/24/19 [History] [place]-3/DHA/Epa/Fish Oil [Fish Oil 500 MG Softgel] 2 each PO DAILY 02/24/19 [ History] Simvastatin [Zocor] 40 mg PO DAILY 02/24/19 [History] Trospium Chloride 20 mg PO DAILY 02/24/19 [History] Vitamin B Complex 1 each PO DAILY 02/24/19 [History] Warfarin [Coumadin] 2.5 mg PO SUTUWETHSA@1400 02/24/19 [History] dilTIAZem HCl [Diltiazem 24Hr ER] 240 mg PO DAILY 02/24/19 [History] Patient Handouts: Iron Sucrose injection, Rectal Bleeding, [id number] Referrals: Justus Dai MD [Ordering Only Provider] - Randi Helton MD [Physician] - 03/04/19 10:00 am Marco Farrell MD [Physician] - 03/10/19 10:00 am - Discharge Summary/Plan Comment DC Time >30 min.: No - Patient Data Vitals - Most Recent: Last Vital Signs Temp 36.3 C 02/24/19 11:00 Pulse 62 02/24/19 11:00 Resp 16 02/24/19 11:00 BP 104/61 02/24/19 11:00 Pulse Ox 97 02/24/19 11:00 Weight - Most Recent: 68.039 kg I&O - Last 24 hours: Intake & Output 02/23/19 02/24/19 02/24/19 22:59 06:59 14:59 Intake Total 1302 946 Output Total 800 Balance 502 946 Lab Results - Last 24 hrs: Laboratory Results - last 24 hr 02/23/19 02/23/19 02/23/19 Range/Units 16:18 16:18 16:18 WBC 5.91 (4.0-11.0) K/uL RBC 4.06 L (4.50-5.90) M/uL Hgb 9.9 L (13.0-17.0) g/dL Hct 32.0 L (38.0-50.0) % MCV 78.8 L (80.0-98.0) fL MCH 24.4 L (27.0-32.0) pg MCHC 30.9 L (31.0-37.0) g/dL RDW Std Deviation 59.1 (28.0-62.0) fl RDW Coeff of Akbar 21 H (11.0-15.0) % Plt Count 209 (150-400) K/uL MPV 9.20 (7.40-12.00) fL Neut % (Auto) 62.1 (48.0-80.0) % Lymph % (Auto) 23.7 (16.0-40.0) % [place] % (Auto) 12.5 (0.0-15.0) % Eos % (Auto) 1.5 (0.0-7.0) % Baso % (Auto) 0.2 (0.0-1.5) % Neut # (Auto) 3.7 (1.4-5.7) K/uL Lymph # (Auto) 1.4 (0.6-2.4) K/uL [place] # (Auto) 0.7 (0.0-0.8) K/uL Eos # (Auto) 0.1 (0.0-0.7) K/uL Baso # (Auto) 0.0 (0.0-0.1) K/uL Nucleated RBC % 0.0 /100WBC Nucleated RBCs # 0 K/uL INR 2.36 Sodium 143 (136-148) mmol/L Potassium 4.0 (3.5-5.1) mmol/L Chloride 105 (98-107) mmol/L Carbon Dioxide 28.4 (21.0-32.0) mmol/L BUN 66 H (7.0-18.0) mg/dL Creatinine 3.1 H (0.8-1.3) mg/dL Est Cr Clr Drug Dosing 16.77 mL/min Estimated GFR (MDRD) 19.2 ml/min Glucose 95 (74-106) mg/dL Calcium 9.1 (8.5-10.1) mg/dL Total Bilirubin 0.3 (0.2-1.0) mg/dL AST 10 L (15-37) IU/L ALT 18 (14-63) IU/L Alkaline Phosphatase 72 (46-116) U/L Total Protein 6.8 (6.4-8.2) g/dL Albumin 3.0 L (3.4-5.0) g/dL Globulin 3.8 (2.6-4.0) g/dL Albumin/Globulin Ratio 0.8 L (0.9-1.6) Lipase 175 (73-393) U/L Urine Color Urine Appearance Urine pH (5.0-8.0) Ur Specific [place] (1.001-1.035) Urine Protein (NEGATIVE) mg/dL Urine Glucose (UA) (NEGATIVE) mg/dL Urine Ketones (NEGATIVE) mg/dL Urine Occult Blood (NEGATIVE) Urine Nitrite (NEGATIVE) Urine Bilirubin (NEGATIVE) Urine Urobilinogen (<2.0) EU/dL Ur Leukocyte Esterase (NEGATIVE) Urine RBC (0-2/HPF) Urine WBC (0-5/HPF) Ur Epithelial Cells (NONE-FEW) Urine Bacteria (NEGATIVE) 02/23/19 02/23/19 02/24/19 Range/Units 21:00 22:09 05:08 WBC 6.14 6.03 (4.0-11.0) K/uL RBC 4.02 L 3.97 L (4.50-5.90) M/uL Hgb 9.6 L 9.6 L (13.0-17.0) g/dL Hct 31.7 L 31.2 L (38.0-50.0) % MCV 78.9 L 78.6 L (80.0-98.0) fL MCH 23.9 L 24.2 L (27.0-32.0) pg MCHC 30.3 L 30.8 L (31.0-37.0) g/dL RDW Std Deviation 58.1 58.5 (28.0-62.0) fl RDW Coeff of Akbar 20 H 20 H (11.0-15.0) % Plt Count 202 204 (150-400) K/uL MPV 9.10 9.20 (7.40-12.00) fL Neut % (Auto) 62.0 59.8 (48.0-80.0) % Lymph % (Auto) 28.7 26.9 (16.0-40.0) % [place] % (Auto) 7.8 10.9 (0.0-15.0) % Eos % (Auto) 1.3 2.2 (0.0-7.0) % Baso % (Auto) 0.2 0.2 (0.0-1.5) % Neut # (Auto) 3.8 3.6 (1.4-5.7) K/uL Lymph # (Auto) 1.8 1.6 (0.6-2.4) K/uL [place] # (Auto) 0.5 0.7 (0.0-0.8) K/uL Eos # (Auto) 0.1 0.1 (0.0-0.7) K/uL Baso # (Auto) 0.0 0.0 (0.0-0.1) K/uL Nucleated RBC % 0.0 0.0 /100WBC Nucleated RBCs # 0 0 K/uL INR Sodium (136-148) mmol/L Potassium (3.5-5.1) mmol/L Chloride (98-107) mmol/L Carbon Dioxide (21.0-32.0) mmol/L BUN (7.0-18.0) mg/dL Creatinine (0.8-1.3) mg/dL Est Cr Clr Drug Dosing mL/min Estimated GFR (MDRD) ml/min Glucose (74-106) mg/dL Calcium (8.5-10.1) mg/dL Total Bilirubin (0.2-1.0) mg/dL AST (15-37) IU/L ALT (14-63) IU/L Alkaline Phosphatase (46-116) U/L Total Protein (6.4-8.2) g/dL Albumin (3.4-5.0) g/dL Globulin (2.6-4.0) g/dL Albumin/Globulin Ratio (0.9-1.6) Lipase (73-393) U/L Urine Color YELLOW Urine Appearance CLEAR Urine pH 6.5 (5.0-8.0) Ur Specific [place] 1.015 (1.001-1.035) Urine Protein 30 H (NEGATIVE) mg/dL Urine Glucose (UA) NEGATIVE (NEGATIVE) mg/dL Urine Ketones NEGATIVE (NEGATIVE) mg/dL Urine Occult Blood SMALL H (NEGATIVE) Urine Nitrite NEGATIVE (NEGATIVE) Urine Bilirubin NEGATIVE (NEGATIVE) Urine Urobilinogen 0.2 (<2.0) EU/dL Ur Leukocyte Esterase NEGATIVE (NEGATIVE) Urine RBC 0-2 (0-2/HPF) Urine WBC 0-2 (0-5/HPF) Ur Epithelial Cells OCCASIONAL (NONE-FEW) Urine Bacteria FEW (NEGATIVE) 02/24/19 02/24/19 02/24/19 Range/Units 05:08 10:38 14:03 WBC 5.96 (4.0-11.0) K/uL RBC 4.30 L (4.50-5.90) M/uL Hgb 10.3 L (13.0-17.0) g/dL Hct 34.0 L (38.0-50.0) % MCV 79.1 L (80.0-98.0) fL MCH 24.0 L (27.0-32.0) pg MCHC 30.3 L (31.0-37.0) g/dL RDW Std Deviation 59.1 (28.0-62.0) fl RDW Coeff of [place] 21 H (11.0-15.0) % Plt Count 201 (150-400) K/uL MPV 9.30 (7.40-12.00) fL Neut % (Auto) (48.0-80.0) % Lymph % (Auto) (16.0-40.0) % [place] % (Auto) (0.0-15.0) % Eos % (Auto) (0.0-7.0) % Baso % (Auto) (0.0-1.5) % Neut # (Auto) (1.4-5.7) K/uL Lymph # (Auto) (0.6-2.4) K/uL [place] # (Auto) (0.0-0.8) K/uL Eos # (Auto) (0.0-0.7) K/uL Baso # (Auto) (0.0-0.1) K/uL Nucleated RBC % 0.0 /100WBC Nucleated RBCs # 0 K/uL INR 2.26 Sodium 144 (136-148) mmol/L Potassium 3.7 (3.5-5.1) mmol/L Chloride 109 H (98-107) mmol/L Carbon Dioxide 24.7 (21.0-32.0) mmol/L BUN 57 H (7.0-18.0) mg/dL Creatinine 2.7 H (0.8-1.3) mg/dL Est Cr Clr Drug Dosing 20.00 mL/min Estimated GFR (MDRD) 22.6 ml/min Glucose 87 (74-106) mg/dL Calcium 8.3 L (8.5-10.1) mg/dL Total Bilirubin (0.2-1.0) mg/dL AST (15-37) IU/L ALT (14-63) IU/L Alkaline Phosphatase (46-116) U/L Total Protein (6.4-8.2) g/dL Albumin (3.4-5.0) g/dL Globulin (2.6-4.0) g/dL Albumin/Globulin Ratio (0.9-1.6) Lipase (73-393) U/L Urine Color Urine Appearance Urine pH (5.0-8.0) Ur Specific [place] (1.001-1.035) Urine Protein (NEGATIVE) mg/dL Urine Glucose (UA) (NEGATIVE) mg/dL Urine Ketones (NEGATIVE) mg/dL Urine Occult Blood (NEGATIVE) Urine Nitrite (NEGATIVE) Urine Bilirubin (NEGATIVE) Urine Urobilinogen (<2.0) EU/dL Ur Leukocyte Esterase (NEGATIVE) Urine RBC (0-2/HPF) Urine WBC (0-5/HPF) Ur Epithelial Cells (NONE-FEW) Urine Bacteria (NEGATIVE) Med Orders - Current: Current Medications Citalopram Hydrobromide (Celexa) 40 mg PO DAILY [facility] Last Admin: 02/24/19 08:30 Dose: 40 mg Diltiazem HCl (Cardizem Cd) 240 mg PO DAILY [facility] Last Admin: 02/24/19 08:29 Dose: 240 mg Pantoprazole Sodium 40 mg/ (Sodium Chloride) 10 mls @ 300 mls/hr IV Q24H [facility] Last Admin: 02/23/19 18:53 Dose: 300 mls/hr Levothyroxine Sodium (Synthroid) 50 mcg PO ACBREAKFAST [facility] Ondansetron HCl (Zofran) 4 mg IVPUSH Q4H PRN PRN Reason: Nausea Simvastatin (Zocor) 40 mg PO BEDTIME [facility] Last Admin: 02/23/19 21:03 Dose: 40 mg Discontinued Medications Sodium Chloride (Normal Saline) 1,000 mls @ 100 mls/hr IV ASDIRECTED [facility] Last Admin: 02/24/19 04:27 Dose: 100 mls/hr Iron Sucrose 200 mg/ Sodium (Chloride) 110 mls @ 220 mls/hr IV ONETIME ONE Stop: 02/24/19 10:59 Last Admin: 02/24/19 11:13 Dose: 220 mls/hr Levothyroxine Sodium (Synthroid) 50 mcg PO DAILY@0700 [facility] Last Admin: 02/24/19 06:33 Dose: 50 mcg
[2019-02-25] MEDS ORDERED: Levothyroxine 50 MCG Tab PO SCH (07:30)
== END 2019-02-24 15:50 | disposition home or self-care (01) ==
LOC: MW.ED 15:11 → MW.MS 17:57
PROVIDERS: ADMIT Internal Medicine; ATTEND Internal Medicine
DX: K92.2 Gastrointestinal hemorrhage, unspecified (principal); I12.9 Hypertensive chronic kidney disease with stage 1 through stage 4 chronic kidney disease, or unspecified chronic kidney disease; N18.9 Chronic kidney disease, unspecified; D50.0 Iron deficiency anemia secondary to blood loss (chronic); I48.91 Unspecified atrial fibrillation; F32.9 Major depressive disorder, single episode, unspecified; Z79.01 Long term (current) use of anticoagulants; Z79.899 Other long term (current) drug therapy; Z88.5 Allergy status to narcotic agent; Z88.0 Allergy status to penicillin
CPT/HCPCS: 36415; 80048; 80053; 81001; 82272; 83690; 85025; 85027; 85610; 96361; 96365; 96375; 99284; A9270; C9113; G0378; J1756; J7030; J7040; J7050; 99283

== ENCOUNTER 2019-08-03 08:22 | Emergency (ER) | payer MEDICARE, BC ==
[2019-08-03 08:48] VITALS: BP 141/54; PULSE 68
[2019-08-03 09:27] LABS: CARBON DIOXIDE,CO2 29.2 mmol/L (21.0-32.0); POTASSIUM,K 4.1 mmol/L (3.5-5.1)
--- NOTE | 2019-08-03 09:37 | CR ---
Pelvis and left hip: AP view of the pelvis was obtained as well as AP and frog-leg lateral views of the left hip. Upper portions of the iliac crest not included on the study. Comparison: Prior pelvis exam of 10/12/18. Joint space narrowing noted within both hips. Bony structures are osteopenic. Slight osteophytes are noted off the femoral heads on both sides. No discrete fracture or other abnormality is appreciated. Impression: 1. Degenerative change within both hips and osteopenia. 2. Nothing acute is appreciated on AP pelvis or 2 view left hip exam. Diagnostic code #2 This report was dictated in [place] Standard Time
--- NOTE | 2019-08-03 09:47 | CT ---
Head CT Technique: Multiple axial sections through the brain were obtained. Intravenous contrast was not utilized. Comparison: Prior head CT study of 10/12/18. Findings: Ventricles along with basal cisterns and sulci over the convexities are moderately prominent. 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 Small infarct is noted within the posterior right frontal region. Small old infarct is noted within the right side of the cerebellum. Diminished density is noted within portions of the basal ganglia and periventricular white matter compatible with small vessel ischemic demyelination change. No other abnormal parenchymal densities are seen. No evidence of intracranial hemorrhage. No midline shift or mass-effect is seen. Atherosclerotic calcification is seen within the carotid siphon. Bone window settings were reviewed. Retention cyst noted within the right maxillary sinus measuring 1.1 cm. No acute paranasal sinus findings are seen. Mastoid sinuses are clear. No acute calvarial abnormality is appreciated. Impression: 1. Old infarcts as noted above. Other senescent change as noted above. 2. No acute intracranial abnormality is appreciated. Diagnostic code #2 This report was dictated in [place] Standard Time
--- NOTE | 2019-08-03 10:00 | EDM.PDOC ---
ED [facility] GENERAL MEDICAL PROBLEM - General Chief Complaint: Lower Extremity Injury/Pain Stated Complaint: HIP PAIN Time Seen by Provider: 08/03/19 08:41 - History of Present Illness INITIAL COMMENTS - FREE TEXT/NARRATIVE: HPI 83-year-old male on warfarin presents with a female adult family member requesting imaging of his left hip after a fall from standing height proximally 6 days ago in which he fell onto his bottom and may have struck his head ( patient denies, family member states that he did). Patient slipped on water in the kitchen. No LOC, normal gait following his injury. No nausea or vomiting. Patient skipped his PT/INR check today to be evaluated in the ED. M/S/F/SocHx notable for: please see HPI; remainder reviewed with patient and in chart. ROS: Negative constitutional, eye, cardiovascular, pulmonary, GI, , MSK, skin , neurologic, psychiatric, endocrine unless noted in the HPI. Exam HR 68, RR 16, BP 141/54, T 36.1C, SaO2 95% room air. General: Pleasant, resting comfortably, not in extremis. HENT: No evidence of facial or head trauma, TTP of orbits, TTP of midface, malocclusion, or septal hematoma. OP clear and moist, dentition intact. Eyes: EOMI, PERRL. Neck: Tracheal midline. No visible skin defects, no step-offs, no c-spine TTP, no stridor, or JVD. Cardiac: Regular rate and rhythm. Chest: No crepitus, visual evidence of trauma, no tenderness to palpation. Equal chest rise. Pulm: Clear to auscultation bilaterally, normal work of breathing without accessory muscle usage. Abd: Soft, nontender to palpation, nondistended, no guarding or visual evidence of trauma. Back: No spinous process tenderness to palpation, no step-offs or visible injuries. Pelvis: Stable, no tenderness to palpation or instability. RUE: No visible injuries. [employer] 5/5, warm and well perfused, sensation appears to be grossly intact at hand. Shoulder, elbow, wrist, and fingers with full functional range of motion. Muscle compartments of the upper arm, forearm, and hand are soft and without marked tenderness to palpation. LUE: No visible injuries. [employer] 5/5, warm and well perfused, sensation appears to be grossly intact at hand. Shoulder, elbow, wrist, and fingers with full functional range of motion. Muscle compartments of the upper arm, forearm, and hand are soft and without marked tenderness to palpation. RLE: No visible injuries. Dorsiflexion 5/5, warm and well perfused, sensation appears to be grossly intact at foot. Hip, knee, ankle, and toes with full functional range of motion. Muscle compartments of the thigh, calf, and foot are soft and without marked tenderness to palpation. LLE: No visible injuries. Dorsiflexion 5/5, warm and well perfused, sensation appears to be grossly intact. Hip, knee, ankle, and toes with full functional range of motion. Muscle compartments of the thigh, calf, and foot are soft and without marked tenderness to palpation. Gait: normal narrow-base nonantalgic gait. Neuro: alert and oriented 3, CN VII intact Skin: Warm and dry (focal injuries noted above). Psych: Normal affect and judgment. Labs / Imaging (pertinent): CT head: no acute intracranial abnormalities appreciated. XR L hip and pelvis: nothing acute appreciated on AP pelvis or two view left hip exam. WBC 7.36, HB 12.5, PT/PT/INR 4.35, sodium 141, potassium 4.1, creatinine 3.5. MDM Previous chart, nursing note, and vitals reviewed. A: 83-year-old male on warfarin presents with a female adult family member requesting imaging of his left hip after a fall from standing height proximally 6 days ago in which he fell onto his bottom and may have struck his head ( patient denies, family member states that he did). DDx & Evaluation: imaging and exam without evidence of clinically significant acute traumatic abnormalities. Creatinine elevated but within the patients historical range, recommend repeat evaluation tomorrow by PCP. PT/INR mildly elevated, recommend patient called one dose warfarin and recheck tomorrow. Impression: fall, hip pain, supratherapeutic PT/INR. hips Pain Score (Numeric/FACES): 5 bilateral knee Pain Score (Numeric/FACES): 5 - Related Data Allergies Allergy/AdvReac Type Severity Reaction Status Date / Time morphine Allergy Vomiting Verified 08/03/19 08:46 Penicillins Allergy Hives Verified 08/03/19 08:46 Home Meds: Home Meds Citalopram [Citalopram HBr] 20 mg PO DAILY 09/03/14 [History] Warfarin [Coumadin] 5 mg PO MOFR@1400 09/03/14 [History] allopurinoL [Zyloprim] 100 mg PO DAILY 09/03/14 [History] Levothyroxine [Synthroid] 50 mcg PO ACBREAKFAST 05/02/18 [History] Calcium Carbonate/Vitamin D3 [Calcium 500+D Tablet Chew] 1 each PO TID 02/24/19 [History] Folic Acid 0.8 mg PO DAILY 02/24/19 [History] Furosemide [Lasix] 40 mg PO DAILY 02/24/19 [History] Latanoprost/Pf [Latanoprost 0.005% Eye Drop] 1 drop OP DAILY 02/24/19 [History] [place]-3/DHA/Epa/Fish Oil [Fish Oil 500 MG Softgel] 2 each PO DAILY 02/24/19 [ History] Simvastatin [Zocor] 40 mg PO DAILY 02/24/19 [History] Trospium Chloride 20 mg PO DAILY 02/24/19 [History] Vitamin B Complex 1 each PO DAILY 02/24/19 [History] Warfarin [Coumadin] 2.5 mg PO SUTUWETHSA@1400 02/24/19 [History] dilTIAZem HCl [Diltiazem 24Hr ER] 240 mg PO DAILY 02/24/19 [History] Past Medical History HEENT History: Reports: Hard of Hearing Other HEENT History: upper dentures Cardiovascular History: Reports: Arrhythmia, Hypertension Respiratory History: Reports: Sleep Apnea Other Respiratory History: Sleep apnea with machine "has not used in over 1 month" Gastrointestinal History: Reports: None Genitourinary History: Reports: Renal Calculus Musculoskeletal History: Reports: Gout Neurological History: Reports: CVA Other Neuro History: hx: Stroke age 50 yrs, residual noted by , is his responses are not always accurate 'he will say no but mean yes', fine motor issues 'cannot button, will come to me to do' Psychiatric History: Reports: Depression Endocrine/Metabolic History: Reports: None Hematologic History: Reports: Anemia Immunologic History: Reports: None Oncologic (Cancer) History: Reports: Prostate Other Oncologic History: Radiation therapy 40 some treatments estimates 3 yrs or > Dermatologic History: Reports: None - Infectious Disease History Infectious Disease History: Reports: Chicken Pox, Measles, Mumps - Past Surgical History Head Surgeries/Procedures: Reports: None HEENT Surgical History: Reports: None Cardiovascular Surgical History: Reports: None Respiratory Surgical History: Reports: None GI Surgical History: Reports: None Male Surgical History: Reports: Other (See Below) Endocrine Surgical History: Reports: None Neurological Surgical History: Reports: Other (See Below) Musculoskeletal Surgical History: Reports: Shoulder Surgery Oncologic Surgical History: Reports: None Dermatological Surgical History: Reports: None Social & Family History - Family History Family Medical History: Noncontributory GI: Reports: Other (See Below) Other GI Family History: His mother and sister of liver disease but cannot recall what their specific condition is. - Tobacco Use Smoking Status *Q: Never Smoker Second Hand Smoke Exposure: No - Caffeine Use Caffeine Use: Reports: Coffee, Soda - Recreational Drug Use Recreational Drug Use: No Review of Systems - Review of Systems Review Of Systems: See Below ED EXAM, GENERAL - Physical Exam Exam: See Below Course - Vital Signs Last Recorded V/S: Last Vital Signs Temp 36.1 C 08/03/19 08:43 Pulse 68 08/03/19 08:43 Resp 16 08/03/19 08:43 BP 141/54 H 08/03/19 08:43 Pulse Ox 95 08/03/19 08:43 - Orders/Labs/Meds Labs: Laboratory Tests 08/03/19 08/03/19 08/03/19 Range/Units 08:57 08:57 08:57 WBC 7.36 (4.0-11.0) K/uL RBC 4.67 (4.50-5.90) M/uL Hgb 12.5 L (13.0-17.0) g/dL Hct 39.6 (38.0-50.0) % MCV 84.8 (80.0-98.0) fL MCH 26.8 L (27.0-32.0) pg MCHC 31.6 (31.0-37.0) g/dL RDW Std Deviation 60.7 (28.0-62.0) fl RDW Coeff of Akbar 20 H (11.0-15.0) % Plt Count 201 (150-400) K/uL MPV 9.50 (7.40-12.00) fL Neut % (Auto) 66.8 (48.0-80.0) % Lymph % (Auto) 21.5 (16.0-40.0) % [place] % (Auto) 9.9 (0.0-15.0) % Eos % (Auto) 1.5 (0.0-7.0) % Baso % (Auto) 0.3 (0.0-1.5) % Neut # (Auto) 4.9 (1.4-5.7) K/uL Lymph # (Auto) 1.6 (0.6-2.4) K/uL [place] # (Auto) 0.7 (0.0-0.8) K/uL Eos # (Auto) 0.1 (0.0-0.7) K/uL Baso # (Auto) 0.0 (0.0-0.1) K/uL Nucleated RBC % 0.0 /100WBC Nucleated RBCs # 0 K/uL INR 4.35 Sodium 141 (136-148) mmol/L Potassium 4.1 (3.5-5.1) mmol/L Chloride 102 (98-107) mmol/L Carbon Dioxide 29.2 (21.0-32.0) mmol/L BUN 60 H (7.0-18.0) mg/dL Creatinine 3.5 H (0.8-1.3) mg/dL Est Cr Clr Drug Dosing 15.43 mL/min Estimated GFR (MDRD) 16.7 ml/min Glucose 143 H (74-106) mg/dL Calcium 9.3 (8.5-10.1) mg/dL Departure - Departure Time of Disposition: 09:58 Disposition: Home, Self-Care 01 Clinical Impression: Fall, Contusion, Elevated INR - Discharge Information Referrals: Marco Farrell MD [Primary Care Provider] - Additional Instructions: You were in seen in the [facility] Emergency Department for evaluation of injuries after a fall 6 days ago. No fractures were found on your imaging or examination. Your PT/INR was mildly elevated at 4.35. Please hold one dose of warfarin and follow up with your doctor tomorrow. You were also noted to have mildly worsened renal function over your historical range. Please have this rechecked by your primary care physician tomorrow as well. Please read and follow all of the instructions below. When calling for follow-up care, please make the office aware that this follow- up is from your recent emergency room visit. If for any reason you are refused follow-up, please contact the [facility] Emergency Department at and asked to speak to the emergency department charge nurse. Your care today was limited to identifying and treating emergent medical problems only. Many people have subtle differences in their test results that require follow up with their outpatient physician(s) to correctly determine if this represents a normal variation or concerning abnormality with respect to your specific health. The care given to you today was limited to identifying and treating emergent medical problems - you need to request a copy of all of your medical records from today's visit and follow up with your outpatient physician(s) to review both today's visit and your overall health. If you have any new symptoms or if you are at all concerned about your health please return immediately to the emergency department. It is common to have sore muscles and contusions and after a fall, accident, or motor vehicle accident. These tend to feel worse over the day following the accident. You may also feel worse when you wake up the first morning after your collision. After this point, you will usually begin to improve with each day. The speed of improvement often depends on the severity of the collision, the number of injuries, and the location and nature of these injuries. Home Care Instructions: You may take acetaminophen and ibuprofen as directed below for relief of muscle aches and pains. If you find relief from hot packs or cold packs you may apply these to the affected areas for up to 15 minutes per time, 3-4 times per day. Drink enough fluids to keep your urine clear or pale yellow. Do not drink alcohol. SEEK IMMEDIATE MEDICAL CARE IF: You have numbness, tingling, or weakness in the arms or legs. You develop severe headaches, changes in vision or hearing, or difficulty walking. You have severe neck pain, especially tenderness in the middle of the back of your neck. You have changes in bowel or bladder control. There is increasing pain in any area of the body. You have shortness of breath, lightheadedness, dizziness, or fainting. You have chest pain. You have increasing abdominal discomfort. There is blood in your urine, stool, or vomit. You are otherwise concerned about your health. Difficulty breathing through your nose. This could be due to bruising with swelling of your septum and will require a prompt procedure to prevent further complications. If symptoms are not improving after 2-3 days, please follow up with your primary care physician for reevaluation. Prescriptions: If you are uninsured or have financial difficulties with filling your prescription(s), you may consider using a free pharmacy discount service such as [employer] ([employer]) or [facility] ([employer]). These services allow you to search for a medication on your phone (or computer) and obtain a coupon that usually has a significant discount from the list simpson at a pharmacy. Your physician as well as [facility] does not have a financial relationship with either of these services. You may also wish to speak with your physician to determine if lower cost prescriptions are possible. Obtaining primary care: 1. [facility] provides pediatrics (children), family medicine (children, adults, and some obstetrical care), and internal medicine (adults). Further specialty care is also available. Same day appointments are available. They may be contacted at [phone] and are open Saturday through Saturday 8 AM to 5 PM. The [facility] are located at [facility], [address] [place] [address]. 2. [facility] offers family medicine, internal medicine, [facility], and further specialty care. [facility] may be contacted at [phone]. [facility] is located at [address] [place], [address]. 3. If you have health insurance, please also contact your insurer for a list of accepting providers under your policy, you may contact these providers for further health care. Occupational health: Work related injuries may consider following up with [facility], . Occupational health services are located at [address] [place] [address] and are open Saturday through Saturday from 7: 30 am to 5:00 pm. Obstetrical and Gynecological Care: [facility], , Saturday through Saturday 8 AM to 5 PM. [address] [place] [address]. Eyecare: If you have an eye injury you should follow up with your qa automation architect or with [facility], at [phone] or [phone] , they are located at [address] [place] [address]. [facility] Ben Liu DDS. [address] [facility].[place], [place]. Ph. [phone] Juan Liu DDS MS. [address] [facility] [address], [place], [place]. Ph. Aj Palma DDS. [address] 05/[address] [place] [address]. Ph. [phone] Andrade Cole DDS. [address] [facility] 4 [place], [place]. Ph. [phone] Nikko Gupta DDS PC. [address] [facility] [address] [place], [place]. Ph. Michelle Chapin DDS. [address] [facility]. Ph. [phone] [facility]. [address] [place], [place]. Ph. [phone] [facility]. [address] [place] [address], [place], [place]. Ph. [phone] [facility] [address] [place] [address]. Ph. [phone] [facility]. [address] [place] [address] [address] [place], [place]. Ph. [phone] [facility]. [address] [place], [place]. Ph. [phone] It is common to have sore muscles and contusions and after a fall, accident, or motor vehicle accident. These tend to feel worse over the day following the accident. You may also feel worse when you wake up the first morning after your collision. After this point, you will usually begin to improve with each day. The speed of improvement often depends on the severity of the collision, the number of injuries, and the location and nature of these injuries. Home Care Instructions: You may take acetaminophen and ibuprofen as directed below for relief of muscle aches and pains. If you find relief from hot packs or cold packs you may apply these to the affected areas for up to 15 minutes per time, 3-4 times per day. Drink enough fluids to keep your urine clear or pale yellow. Do not drink alcohol. SEEK IMMEDIATE MEDICAL CARE IF: You have numbness, tingling, or weakness in the arms or legs. You develop severe headaches, changes in vision or hearing, or difficulty walking. You have severe neck pain, especially tenderness in the middle of the back of your neck. You have changes in bowel or bladder control. There is increasing pain in any area of the body. You have shortness of breath, lightheadedness, dizziness, or fainting. You have chest pain. You have increasing abdominal discomfort. There is blood in your urine, stool, or vomit. You are otherwise concerned about your health. Difficulty breathing through your nose. This could be due to bruising with swelling of your septum and will require a prompt procedure to prevent further complications. If symptoms are not improving after 2-3 days, please follow up with your primary care physician for reevaluation. Sepsis Event Note - Evaluation Sepsis Screening Result: No Definite Risk - Focused Exam Vital Signs: Vital Signs Temp Pulse Resp BP Pulse Ox 08/03/19 08:43 36.1 C 68 16 141/54 H 95 Date Exam was Performed: 08/03/19 Time Exam was Performed: 09:58
== END 2019-08-03 10:25 | disposition home or self-care (01) ==
LOC: MW.ED 08:22
DX: S70.02XA Contusion of left hip, initial encounter (principal); S70.01XA Contusion of right hip, initial encounter; S80.02XA Contusion of left knee, initial encounter; S80.01XA Contusion of right knee, initial encounter; R79.1 Abnormal coagulation profile; I10 Essential (primary) hypertension; F32.9 Major depressive disorder, single episode, unspecified; D64.9 Anemia, unspecified; Z88.5 Allergy status to narcotic agent; Z88.0 Allergy status to penicillin; Z79.01 Long term (current) use of anticoagulants; Z79.899 Other long term (current) drug therapy; W17.89XA Other fall from one level to another, initial encounter
CPT/HCPCS: 36415; 70450; 70450-26; 73502-26-LT; 73502-LT; 80048; 85025; 85610; 99284-25

== ENCOUNTER 2021-02-06 17:46 | Emergency (ER) | payer MEDICARE, BC ==
[2021-02-06] MEDS ORDERED: Lidocaine 5% 700 MG Patch TRDERM ONE (18:38)
--- NOTE | 2021-02-06 19:22 | CR ---
INDICATION: Pain after fall. TECHNIQUE: Three views right knee. IMPRESSION: Mild osteopenia. Some atherosclerotic vascular calcification. No fracture or bone lesion. No joint effusion. Moderate grade 1 narrowing in the medial compartment without osteophytes. Dictated by Douglas Jacinto MD @ 02/06/2021 7:20:39 PM (Electronically Signed)
--- NOTE | 2021-02-06 19:42 | EDM.PDOC ---
<Alonzo Celis - Last Filed: 02/06/21 19:47> ED HPI GENERAL MEDICAL PROBLEM - General Chief Complaint: Lower Extremity Injury/Pain Stated Complaint: FALL, HIP PAIN Time Seen by Provider: 02/06/21 18:17 - History of Present Illness INITIAL COMMENTS - FREE TEXT/NARRATIVE: CHIEF COMPLAINT(S): Accidental fall HISTORY OF PRESENT ILLNESS: This is a 85-year-old man with a past medical history of atrial fibrillation on anticoagulation who comes to the emergency department with a chief complaint of accidental fall. The patient is in presents with daughter and . The patient states that he was trying to get into the vehicle with his son as they were going to admit no to a doctor's appointment for his son. He states that he must of slipped and fell. He states that he landed on his right knee and is currently experiencing pain on the backside of his knee. He denies any numbness, tingling, weakness. He states that this happened earlier this morning. He denies any head injury or loss of c onsciousness. He currently rates his pain as 4 out of 10 without any radiation. Exacerbating factors include standing on his right knee. Relieving factors include not standing on his right knee. The daughter who is in presence stated they tried to give him Tylenol however he is afraid to use Tylenol because of his warfarin. Both and daughter states that the patient should walk with a cane or a walker however he is stubborn and does not want to. He has had falls in the past. The patient currently denies any other symptoms or injury. He denies any preceding chest pain, shortness of breath and denied any syncope. REVIEW OF SYSTEMS: Constitutional: Denies fever, chills. Eyes: Denies eye pain Ears, Nose, Mouth, & Throat: Denies earache Cardiovascular: Denies chest pain Respiratory: Denies shortness of breath Gastrointestinal: Denies Nausea, vomiting, diarrhea, hematochezia. Genitourinary: Denies hematuria Skin:Denies a rash MSK: Positive for left knee pain. Neurological: Denies blurred vision Psychiatric: Denies depression PAST MEDICAL HISTORY: As per history of present illness and as reviewed below otherwise noncontributory. SURGICAL HISTORY: As per history of present illness and as reviewed below otherwise noncontributory. SOCIAL HISTORY: As per history of present illness and as reviewed below otherwise noncontributory. FAMILY HISTORY: As per history of present illness and as reviewed below otherwise noncontributory. EXAMINATION OF ORGAN SYSTEMS/BODY AREAS: Constitutional: Blood pressure is 138/77, heart rate 65, respiratory rate 18 with an oxygen saturation 96% on room air. Temperature 36.8 General: Well-appearing man who is in no acute distress Psychiatric: Appropriate mood and affect. Eyes: No scleral icterus or conjunctival erythema ENMT: Moist mucous membranes. No pharyngeal erythema Cardiovascular: Regular, rate, and rhythm. No gallops, murmurs, or rubs. Bilateral upper extremity and lower extremity pulses symmetric and intact. No p eripheral edema. No JVD. Respiratory: Lungs clear to auscultation bilaterally. No wheezes, rales, or rhonchi. Gastrointestinal: Soft, non-tender, non-distended. Normoactive bowel sounds Genitourinary: No suprapubic tenderness Musculoskeletal: The patient has full range of motion of the right knee and right hip. The patient is able to ambulate without any difficulty. There is tenderness to palpation along the hamstring insertion on the posterior aspect of the knee. There is no knee swelling, abrasion or ecchymosis. Skin: No lesions or abrasions. Neurological: Alert, GCS 15 strength and sensation grossly intact in upper and lower extremities bilaterally MEDICAL DECISION MAKING AND COURSE IN THE ED WITH INTERPRETATION/REVIEW OF DIAGNOSTIC STUDIES: This is a 85-year-old man with a past medical history of atrial fibrillation on warfarin who comes to the emergency department with an acute mechanical fall with right posterior knee pain which I do believe is likely secondary to hamstring strain however given his age will obtain a right knee x-ray. We will provide the patient with a lidocaine patch as he is not amenable to any other medication. I do not believe any further imaging or work- up is indicated. DISPOSITION: Patient was signed out to oncoming night team physician pending knee x-ray and final disposition CONDITION: Fair PROCEDURES: None FINAL IMPRESSION(S)/DIAGNOSES: 1. Acute mechanical fall 2. Acute right posterior knee pain Alonzo Celis M.D. - Related Data Allergies Allergy/AdvReac Type Severity Reaction Status Date / Time morphine Allergy Vomiting Verified 08/03/19 08:46 Penicillins Allergy Hives Verified 03/09/20 08:46 Home Meds: Home Meds Citalopram [Citalopram HBr] 20 mg PO DAILY 09/03/14 [History] Warfarin [Coumadin] 5 mg PO MOFR@1400 09/03/14 [History] allopurinoL [Zyloprim] 100 mg PO DAILY 09/03/14 [History] Levothyroxine [Synthroid] 50 mcg PO ACBREAKFAST 05/02/18 [History] Calcium Carbonate/Vitamin D3 [Calcium 500+D Tablet Chew] 1 each PO TID 02/24/19 [History] Folic Acid 0.8 mg PO DAILY 02/24/19 [History] Furosemide [Lasix] 40 mg PO DAILY 02/24/19 [History] Latanoprost/Pf [Latanoprost 0.005% Eye Drop] 1 drop OP DAILY 02/24/19 [History] [place]-3/DHA/Epa/Fish Oil [Fish Oil 500 MG Softgel] 2 each PO DAILY 02/24/19 [History] Simvastatin [Zocor] 40 mg PO DAILY 02/24/19 [History] Trospium Chloride 20 mg PO DAILY 02/24/19 [History] Vitamin B Complex 1 each PO DAILY 02/24/19 [History] Warfarin [Coumadin] 2.5 mg PO SUTUWETHSA@1400 02/24/19 [History] dilTIAZem HCl [Diltiazem 24Hr ER] 240 mg PO DAILY 02/24/19 [History] Lidocaine 5% [Lidoderm 5%] 1 patch TOP DAILY #7 patch 02/06/21 [Rx] Past Medical History HEENT History: Reports: Hard of Hearing Other HEENT History: upper dentures Cardiovascular History: Reports: Arrhythmia, Hypertension Respiratory History: Reports: Sleep Apnea Other Respiratory History: Sleep apnea with machine "has not used in over 1 month" Gastrointestinal History: Reports: None Genitourinary History: Reports: Renal Calculus Musculoskeletal History: Reports: Gout Neurological History: Reports: CVA Other Neuro History: hx: Stroke age 50 yrs, residual noted by , is his responses are not always accurate 'he will say no but mean yes', fine motor issues 'cannot button, will come to me to do' Psychiatric History: Reports: Depression Endocrine/Metabolic History: Reports: None Hematologic History: Reports: Anemia Immunologic History: Reports: None Oncologic (Cancer) History: Reports: Prostate Other Oncologic History: Radiation therapy 40 some treatments estimates 3 yrs or > Dermatologic History: Reports: None - Infectious Disease History Infectious Disease History: Reports: Chicken Pox, Measles, Mumps - Past Surgical History Head Surgeries/Procedures: Reports: None HEENT Surgical History: Reports: None Cardiovascular Surgical History: Reports: None Respiratory Surgical History: Reports: None GI Surgical History: Reports: None Male Surgical History: Reports: Other (See Below) Other Male Surgeries/Procedures: hx: Extraction of imbedded kidney stone to Left kidney Endocrine Surgical History: Reports: None Neurological Surgical History: Reports: Other (See Below) Other Neurological Surgeries/Procedures: hx: Low back surgery, Bilateral Carpal Tunnel release Musculoskeletal Surgical History: Reports: Shoulder Surgery Other Musculoskeletal Surgeries/Procedures:: Right Rotator Cuff Repair Oncologic Surgical History: Reports: None Dermatological Surgical History: Reports: None Social & Family History - Family History Family Medical History: No Pertinent Family History GI: Reports: Other (See Below) Other GI Family History: His mother and sister of liver disease but cannot recall what their specific condition is. - Tobacco Use Tobacco Use Status *Q: Never Tobacco User - Caffeine Use Caffeine Use: Reports: Coffee - Recreational Drug Use Recreational Drug Use: No Review of Systems - Review of Systems Review Of Systems: See Below ED EXAM, GENERAL - Physical Exam Exam: See Below Departure - Departure Disposition: Home, Self-Care 01 Clinical Impression: Accident due to mechanical fall without injury, Musculoskeletal strain - Discharge Information Prescriptions: Lidocaine 5% [Lidoderm 5%] 1 patch TOP DAILY #7 patch Instructions: Muscle Strain, [id number] Referrals: Marco Farrell MD [Primary Care Provider] - 3 Days Forms: ED Department Discharge Additional Instructions: The need for follow-up, as well as the timing and circumstances, are variable depending upon the specifics of your emergency department visit. If you don't have a primary care physician on staff, we will provide you with a referral. We always advise you to contact your personal physician following an emergency department visit to inform them of the circumstance of the visit and for follow-up with them and/or the need for any referrals to a consulting specialist. The emergency department will also refer you to a specialist when appropriate. This referral assures that you have the opportunity for follow-up care with a specialist. All of these measure are taken in an effort to provide you with optimal care, which includes your follow-up. Under all circumstances we always encourage you to contact your private physician who remains a resource for coordinating your care. When calling for follow-up care, please make the office aware that this follow-up is from your recent emergency room visit. If for any reason you are refused follow-up, please contact the [facility] Emergency Department at and asked to speak to the emergency department charge nurse. If you do not have a primary care doctor, please follow up with the clinics below within 3-5 days. [facility] [address] [place] [id number] [address] <Osvaldo Dawson - Last Filed: 02/06/21 20:09> ED HPI GENERAL MEDICAL PROBLEM - History of Present Illness INITIAL COMMENTS - FREE TEXT/NARRATIVE: 1900: This patient was signed out to me from Dr. Celis at this time. I promptly performed a detailed physical examination, my examination was performed after ED treatments were initiated by the signout provider. Patient has been under the care of the previous provider up until this point. 2006: X-ray did not demonstrate any fracture or dislocation. He is currently stable for discharge. I performed a repeat exam and did not appreciate new abnormal findings. Patient exhibits normal vital signs and has a normal gait on road test. I advised the patient to return to the ER for reevaluation if symptoms worsened, including fever, worsening pain, or any other worrisome symptoms. I instructed the patient to follow up with their PCP within 2-3 days. Course - Vital Signs Last Recorded V/S: Last Vital Signs Temp 98.3 F 02/06/21 18:50 Pulse 62 02/06/21 18:50 Resp 15 02/06/21 18:50 BP 134/56 L 02/06/21 18:50 Pulse Ox 95 02/06/21 18:50 - Orders/Labs/Meds Meds: Medications Discontinued Medications Generic Name Dose Route Start Last Admin Trade Name Freq PRN Reason Stop Dose Admin Lidocaine 700 mg 02/06/21 18:38 02/06/21 18:56 Lidocaine 5% 700 Mg Patch TRDERM 02/06/21 18:39 700 mg ONETIME ONE Administration Departure - Departure Time of Disposition: 20:08 Condition: Good - Discharge Information *PRESCRIPTION DRUG MONITORING PROGRAM REVIEWED*: Not Applicable *COPY OF PRESCRIPTION DRUG MONITORING REPORT IN PATIENT KRIS: Not Applicable Sepsis Event Note (ED) - Focused Exam Vital Signs: Vital Signs Temp Temp Pulse Resp BP Pulse Ox 02/06/21 18:50 98.3 F 98.3 F 62 15 134/56 L 95 02/06/21 17:50 98.3 F 65 18 138/77 96
[2021-02-06 23:38] VITALS: BP 135/66; PULSE 73
== END 2021-02-06 20:15 | disposition home or self-care (01) ==
LOC: MW.ED 17:46
DX: S86.811A Strain of other muscle(s) and tendon(s) at lower leg level, right leg, initial encounter (principal); I10 Essential (primary) hypertension; Z88.5 Allergy status to narcotic agent; Z88.0 Allergy status to penicillin; Z86.73 Personal history of transient ischemic attack (TIA), and cerebral infarction without residual deficits; Z79.01 Long term (current) use of anticoagulants; W01.0XXA Fall on same level from slipping, tripping and stumbling without subsequent striking against object, initial encounter
CPT/HCPCS: 73562; 99283; A9270

== ENCOUNTER 2021-11-08 09:19 | Emergency (ER) | payer MEDICARE, BC ==
[2021-11-08 10:36] LABS: CARBON DIOXIDE,CO2 27.5 mmol/L (21.0-32.0); POTASSIUM,K 4.1 mmol/L (3.5-5.1)
[2021-11-08 19:22] VITALS: BP 125/69; PULSE 72
== END 2021-11-08 12:41 | disposition home or self-care (01) ==
LOC: MW.ED 09:19
DX: S62.305A Unspecified fracture of fourth metacarpal bone, left hand, initial encounter for closed fracture (principal); I11.0 Hypertensive heart disease with heart failure; I50.9 Heart failure, unspecified; Z88.5 Allergy status to narcotic agent; Z88.0 Allergy status to penicillin; Z79.899 Other long term (current) drug therapy; W01.0XXA Fall on same level from slipping, tripping and stumbling without subsequent striking against object, initial encounter
CPT/HCPCS: 29125; 36415; 70450; 70450-26; 71045; 71045-26; 72125; 72125-26; 73130-26-LT; 73130-LT; 80053; 82947; 84484; 85025; 85610; 93005; 99284-25

== ENCOUNTER 2021-11-30 18:27 | Emergency (ER) | payer MEDICARE, BC ==
[2021-11-30 19:13] VITALS: BP 158/62; PULSE 86
[2021-11-30] MEDS ORDERED: Sodium Chloride 0.9% 10 ML Syringe FLUSH PRN (19:41)
[2021-11-30] MEDS ORDERED: Sodium Chloride 0.9% 2.5 ML Syringe FLUSH PRN (19:41)
[2021-11-30 20:46] LABS: CARBON DIOXIDE,CO2 24.3 mmol/L (21.0-32.0); POTASSIUM,K 4.5 mmol/L (3.5-5.1)
[2021-11-30 20:56] LABS: CORONAVIRUS COVID-19 NAA POSITIVE (NEGATIVE); INFLUENZA A NAA NEGATIVE (NEGATIVE); INFLUENZA B NAA NEGATIVE (NEGATIVE)
[2021-11-30] MEDS ORDERED: Heparin Sodium 5,000 Units/ML Vial IVPUSH ONE ×3 (23:01→23:38)
[2021-11-30] MEDS ORDERED: Aspirin 81 MG Tab.Chew PO ONE (23:10)
[2021-11-30] MEDS ORDERED: Heparin Sodium/0.45% NaCl 500 ML IV SCH ×2 (23:15→23:45)
== END 2021-12-01 02:47 ==
LOC: MW.ED 18:27
DX: I21.4 Non-ST elevation (NSTEMI) myocardial infarction (principal); U07.1 COVID-19; R09.02 Hypoxemia; I10 Essential (primary) hypertension; Z88.5 Allergy status to narcotic agent; Z88.0 Allergy status to penicillin; Z79.01 Long term (current) use of anticoagulants; Z79.899 Other long term (current) drug therapy
CPT/HCPCS: 0240U; 36415; 71045; 80053; 84484; 85025; 85379; 85610; 85730; 93005; 96365; 96366; 99285; A9270; J1644; J3490

== ENCOUNTER 2021-12-14 23:41 | Emergency (ER) | payer MEDICARE, BC ==
[2021-12-14] MEDS ORDERED: Sodium Chloride 0.9% 500 ML IV ONE (23:53)
[2021-12-14] MEDS ORDERED: Phytonadione 5 MG in Sodium Chloride 0.9% 50 ML IV ONE (23:56)
[2021-12-14] MEDS ORDERED: Factor IX Complex Human 1,000 UNIT VIAL IV STA (23:58)
[2021-12-15 01:11] LABS: CARBON DIOXIDE,CO2 27.2 mmol/L (21.0-32.0); POTASSIUM,K 4.7 mmol/L (3.5-5.1)
[2021-12-15] MEDS ORDERED: Factor IX Complex Human 1,000 UNIT VIAL IV STA (01:43)
[2021-12-15] MEDS ORDERED: Pantoprazole 40 MG in Sodium Chloride 0.9% 10 ML IVPUSH ONE (02:24)
[2021-12-15 04:27] VITALS: BP 89/43; PULSE 51
== END 2021-12-15 03:24 ==
LOC: MW.ED 23:41
DX: K92.2 Gastrointestinal hemorrhage, unspecified (principal); I12.9 Hypertensive chronic kidney disease with stage 1 through stage 4 chronic kidney disease, or unspecified chronic kidney disease; N18.9 Chronic kidney disease, unspecified; I48.91 Unspecified atrial fibrillation; Z86.73 Personal history of transient ischemic attack (TIA), and cerebral infarction without residual deficits; Z79.899 Other long term (current) drug therapy; Z79.01 Long term (current) use of anticoagulants; Z88.0 Allergy status to penicillin; Z88.5 Allergy status to narcotic agent; Z86.16 Personal history of COVID-19
CPT/HCPCS: 36415; 36430; 70450; 71045; 72125; 80053; 81003; 83605; 83690; 83735; 84484; 85025; 85610; 85730; 86850; 86900; 86901; 86920; 87040; 93005; 96361; 96365; 96367; 96375; 99285; C9113; J3430; J3490; J7030; J7168; P9016; 93010; 99291

== ENCOUNTER 2022-01-19 08:28 | Emergency (ER) | payer MEDICARE, BC ==
[2022-01-19] MEDS ORDERED: Sodium Chloride 0.9% 10 ML Syringe FLUSH PRN (10:38)
[2022-01-19] MEDS ORDERED: Sodium Chloride 0.9% 2.5 ML Syringe FLUSH PRN (10:38)
[2022-01-19 12:22] LABS: CARBON DIOXIDE,CO2 24.7 mmol/L (21.0-32.0); POTASSIUM,K 4.4 mmol/L (3.5-5.1)
[2022-01-19 15:02] VITALS: BP 143/76; PULSE 88
== END 2022-01-19 15:40 ==
LOC: MW.ED 08:28
DX: I21.4 Non-ST elevation (NSTEMI) myocardial infarction (principal); I48.91 Unspecified atrial fibrillation; I12.9 Hypertensive chronic kidney disease with stage 1 through stage 4 chronic kidney disease, or unspecified chronic kidney disease; N18.9 Chronic kidney disease, unspecified; M10.9 Gout, unspecified; I25.2 Old myocardial infarction; Z86.73 Personal history of transient ischemic attack (TIA), and cerebral infarction without residual deficits; Z86.16 Personal history of COVID-19; Z88.5 Allergy status to narcotic agent; Z88.0 Allergy status to penicillin; Z20.822 Contact with and (suspected) exposure to COVID-19
CPT/HCPCS: 36415; 71046; 80053; 83735; 84484; 85025; 85610; 93005; 99285; J3490; U0002; 93010; 99284

== ENCOUNTER 2023-04-22 10:52 | Emergency (ER) | payer MEDICARE, BC ==
[2023-04-22 18:37] VITALS: BP 129/51; PULSE 68
== END 2023-04-22 13:45 | disposition home or self-care (01) ==
LOC: MW.ED 10:52
DX: S50.11XA Contusion of right forearm, initial encounter (principal); I10 Essential (primary) hypertension; Z88.0 Allergy status to penicillin; Z88.5 Allergy status to narcotic agent; Z79.899 Other long term (current) drug therapy; W19.XXXA Unspecified fall, initial encounter
CPT/HCPCS: 70450; 70450-26; 72125; 72125-26; 72170; 72170-26; 73090-26-RT; 73090-RT; 99282; 99284